=== PATIENT | male | born 1965 | race American Indian/Alaskan Native ===

== ENCOUNTER 2020-02-02 10:32 | Inpatient (IN) | payer BC, OTHER ==
--- NOTE | 2020-02-02 10:32 | EDM.PDOC ---
"ED HPI GENERAL MEDICAL PROBLEM - General Chief Complaint: Respiratory Problem Stated Complaint: AMBULANCE Time Seen by Provider: 02/02/20 10:32 Source of Information: Reports: Patient, EMS, Old Records, RN, RN Notes Reviewed History Limitations: Reports: No Limitations - History of Present Illness INITIAL COMMENTS - FREE TEXT/NARRATIVE: Pt arrives from [facility] by ambulance with report of shortness of breath, cough, and fever. Pt reports generalized body aches. Pt has been exposed to COVID positive family members living in his home over the past 1 to 2 weeks. EMS reports pt was initially hypoxic with O2 sats. of 85%. Clinic reports chest x-ray from today reported as B/L pneumonia, WBC 10.2. Onset: Gradual Duration: Day(s): (1-2), Constant, Getting Worse Location: Reports: Chest, Generalized - Related Data Allergies Allergy/AdvReac Type Severity Reaction Status Date / Time No Known Allergies Allergy Verified 02/02/20 10:40 Home Meds: Home Meds . [No Known Home Meds] 02/02/20 [History] Past Medical History Endocrine/Metabolic History: Reports: Diabetes, Type II Social & Family History - Family History Other Psychiatric Family History: 02/02/20 Multiple family members in the home confirmed COVID positive. Endocrine/Metabolic: Reports: Diabetes, type II - Living Situation & Occupation Living situation: Reports: with Family ED ROS GENERAL - Review of Systems Review Of Systems: Comprehensive ROS is negative, except as noted in HPI. ED EXAM, GENERAL - Physical Exam Exam: See Below Exam Limited By: No Limitations General Appearance: Alert, WD/WN, No Apparent Distress, Obese Eye Exam: Bilateral Eye: Normal Inspection Nose: Normal Inspection, Normal Mucosa, No Blood Throat/Mouth: Normal Inspection, Normal Lips, Normal Oropharynx, Normal Voice, No Airway Compromise Head: Atraumatic, Normocephalic Neck: Normal Inspection, Supple, Non-Tender, Full Range of Motion Respiratory/Chest: No Respiratory Distress, No Accessory Muscle Use, Crackles (Bibasilar). No: Rales, Rhonchi, Wheezing, Stridor Cardiovascular: Normal Peripheral Pulses, Regular Rate, Rhythm, No Edema GI/Abdominal: Normal Bowel Sounds, Soft, Non-Tender, No Organomegaly, No Distention, No Abnormal Bruit, No Mass Back Exam: Normal Inspection, Full Range of Motion Extremities: Normal Inspection, Normal Range of Motion, Non-Tender, Normal Capillary Refill, No Pedal Edema Neurological: Alert, Oriented, CN II-XII Intact, Normal Cognition, No Motor/Sensory Deficits Psychiatric: Normal Affect, Normal Mood Skin Exam: Warm, Dry, Intact, Normal Color, No Rash Course - Vital Signs Last Recorded V/S: Last Vital Signs Temp 99.9 F 02/02/20 10:41 Pulse 97 02/02/20 10:41 Resp 24 H 02/02/20 10:41 BP 126/70 02/02/20 10:41 Pulse Ox 96 02/02/20 10:41 - Orders/Labs/Meds Orders: Active Orders 24 hr Category Date Time Status Peripheral IV Care [RC] . DIRECTED Care 02/02/20 10:34 Active CULTURE BLOOD [BC] Stat Lab 02/02/20 10:56 Received CULTURE BLOOD [BC] Stat Lab 02/02/20 11:01 Received DRUG SCREEN URINE BIORAD [URCHEM] Stat Lab 02/02/20 10:33 Ordered UA RFX FRANK AND CULT IF INDIC [URIN] Stat Lab 02/02/20 10:33 Ordered Sodium Chloride 0.9% [Saline Flush] Med 02/02/20 10:33 Active 10 ml FLUSH ASDIRECTED PRN Sodium Chloride 0.9% with KCl [Normal Saline with 40 Med 02/02/20 12:00 Active mEq KCl] 1,000 ml IV ASDIRECTED Blood Culture x2 Reflex Set [OM.PC] Stat Oth 02/02/20 10:33 Ordered Peripheral IV Insertion Adult [OM.PC] Stat Oth 02/02/20 10:33 Ordered Medication Orders Potassium Chloride/Sodium Chloride (Normal Saline With 40 Meq Kcl) 1,000 mls @ 250 mls/hr IV ASDIRECTED MEL Last Admin: 02/02/20 12:11 Dose: 250 mls/hr Documented by: KATIE Sodium Chloride (Saline Flush) 10 ml FLUSH ASDIRECTED PRN PRN Reason: Keep Vein Open Last Admin: 02/02/20 10:38 Dose: 10 ml Documented by: VI Labs: Laboratory Tests 02/02/20 02/02/20 02/02/20 Range/Units 10:10 10:56 10:56 WBC 10.9 H (5.0-10.0) 10^3/uL RBC 4.83 (4.6-6.2) 10^6/uL Hgb 14.2 (14.0-18.0) g/dL Hct 39.3 L (40.0-54.0) % MCV 81.4 (80-100) fL MCH 29.4 (27.0-34.0) pg MCHC 36.1 H (33.0-35.0) g/dL Plt Count 240 (150-450) 10^3/uL Neut % (Auto) 90.1 H (42.2-75.2) % Lymph % (Auto) 4.6 L (20.5-50.1) % Coleman % (Auto) 5.2 (2-8) % Eos % (Auto) 0.0 L (1.0-3.0) % Baso % (Auto) 0.1 (0.0-1.0) % PT (9.0-12.0) SEC INR (0.9-1.2) APTT (22.0-34.0) SEC D-Dimer, Quantitative (0-400) ng/mL Sodium 133 L (136-145) mmol/L Potassium 2.9 L (3.5-5.1) mmol/L Chloride 96 L (98-107) mmol/L Carbon Dioxide 27 (21-32) mmol/L Anion Gap 12.9 (7-13) mEq/L BUN 10 (7-18) mg/dL Creatinine 1.22 (0.70-1.30) mg/dL Est Cr Clr Drug Dosing 69.22 mL/min Estimated GFR (MDRD) > 60 BUN/Creatinine Ratio 8.2 (No establ ref range) Glucose 304 H (74-99) mg/dL Lactic Acid (0.4-2.0) mmol/L Calcium 7.7 L (8.5-10.1) mg/dL Total Bilirubin 1.0 (0.2-1.0) mg/dL AST 43 H (15-37) U/L ALT 46 (16-63) U/L Alkaline Phosphatase 116 (46-116) U/L Troponin I < 0.017 (0.000-0.056) ng/mL C-Reactive Protein 19.2 H (0.0-0.9) mg/dL Total Protein 7.6 (6.4-8.2) g/dL Albumin 2.7 L (3.4-5.0) g/dL Globulin 4.9 Albumin/Globulin Ratio 0.55 COVID-19 (HEMALATHA) Negative (NEGATIVE) 02/02/20 02/02/20 02/02/20 Range/Units 10:56 10:56 10:56 WBC (5.0-10.0) 10^3/uL RBC (4.6-6.2) 10^6/uL Hgb (14.0-18.0) g/dL Hct (40.0-54.0) % MCV (80-100) fL MCH (27.0-34.0) pg MCHC (33.0-35.0) g/dL Plt Count (150-450) 10^3/uL Neut % (Auto) (42.2-75.2) % Lymph % (Auto) (20.5-50.1) % Coleman % (Auto) (2-8) % Eos % (Auto) (1.0-3.0) % Baso % (Auto) (0.0-1.0) % PT 9.8 (9.0-12.0) SEC INR 1.0 (0.9-1.2) APTT 27.5 (22.0-34.0) SEC D-Dimer, Quantitative 735 H (0-400) ng/mL Sodium (136-145) mmol/L Potassium (3.5-5.1) mmol/L Chloride (98-107) mmol/L Carbon Dioxide (21-32) mmol/L Anion Gap (7-13) mEq/L BUN (7-18) mg/dL Creatinine (0.70-1.30) mg/dL Est Cr Clr Drug Dosing mL/min Estimated GFR (MDRD) BUN/Creatinine Ratio (No establ ref range) Glucose (74-99) mg/dL Lactic Acid 2.4 H* (0.4-2.0) mmol/L Calcium (8.5-10.1) mg/dL Total Bilirubin (0.2-1.0) mg/dL AST (15-37) U/L ALT (16-63) U/L Alkaline Phosphatase (46-116) U/L Troponin I (0.000-0.056) ng/mL C-Reactive Protein (0.0-0.9) mg/dL Total Protein (6.4-8.2) g/dL Albumin (3.4-5.0) g/dL Globulin Albumin/Globulin Ratio COVID-19 (HEMALATHA) (NEGATIVE) Meds: Medications Generic Name Dose Route Start Last Admin Trade Name Freq PRN Reason Stop Dose Admin Potassium Chloride/Sodium Chloride 1,000 mls @ 250 mls/hr 02/02/20 12:00 02/02/20 12:11 Normal Saline With 40 Meq Kcl IV 250 mls/hr ASDIRECTED MEL Administration Sodium Chloride 10 ml 02/02/20 10:33 02/02/20 10:38 Saline Flush FLUSH 10 ml ASDIRECTED PRN Administration Keep Vein Open Discontinued Medications Generic Name Dose Route Start Last Admin Trade Name Freq PRN Reason Stop Dose Admin Azithromycin 500 mg 02/02/20 11:39 02/02/20 11:54 Zithromax PO 02/02/20 11:40 500 mg ONETIME ONE Administration Dexamethasone 8 mg 02/02/20 11:39 02/02/20 11:55 Dexamethasone IVPUSH 02/02/20 11:40 8 mg ONETIME ONE Administration Ceftriaxone Sodium 2 gm/ 100 mls @ 200 mls/hr 02/02/20 11:38 02/02/20 11:54 Sodium Chloride IV 02/02/20 12:07 200 mls/hr ONETIME ONE Administration Iopamidol 100 ml 02/02/20 12:19 02/02/20 12:51 Isovue-370 (76%) IVPUSH 02/02/20 12:20 79 ml ONETIME ONE Administration Ondansetron HCl 4 mg 02/02/20 11:52 02/02/20 11:58 Zofran IV 02/02/20 11:53 4 mg ONETIME ONE Administration Potassium Chloride 40 meq 02/02/20 11:52 02/02/20 12:11 Klor-Con 10 PO 02/02/20 11:53 40 meq ONETIME ONE Administration - Radiology Interpretation Free Text/Narrative:: [facility] [place] [facility] Final Radiology Report Call: [phone] assistance Online chat: [email or web address] Name: KEYLA SMITH SR Age: 55Years M Date: 02/02/2020 SSN: -- : [id number] Study: CT CHEST W CONT Requesting Physician: YASMANY AQUINO Images: [id number] Addl Studies: Provided Clinical History: Hypoxia, elev. D-dimer Contrast: With Contrast Medium: Isovue 370 Contrast Amount: 79 mL Contrast Method: Intravenous (IV) Page 1 of 2 PROCEDURE INFORMATION: Exam: CT Chest With Contrast Exam date and time: 02/02/2020 12:34 PM Age: 55 years old Clinical indication: Other: Hypoxia, elev. D-dimer TECHNIQUE: Imaging protocol: Computed tomography of the chest with intravenous contrast. Radiation optimization: All CT scans at this facility use at least one of these dose optimization techniques: automated exposure control; mA and/or kV adjustment per patient size (includes targeted exams where dose is matched to clinical indication); or iterative reconstruction. Contrast material: ISOVUE 370; Contrast volume: 79 ml; Contrast route: INTRAVE NOUS (IV); COMPARISON: No relevant prior studies available. FINDINGS: Thyroid: The bilateral thyroid lobes are unremarkable. Lungs: Mosaic lung attenuation is present consistent with small airways or small vessels disease, with ground-glass opacities which are non rounded and do not demonstrate a specific central versus peripheral distribution (apical sparing is present). Right bilateral lower lobe pulmonary partial atelectasis. Pleural space: No pneumothorax. No pleural effusion. Heart: Small pericardial effusion. Mediastinal space: Hyperattenuating material within the distal thoracic esophagus consistent with ingested medication. Aorta: Mild aortic arch atherosclerotic calcification without ectasia. Lymph nodes: Right upper paratracheal lymph node measuring 7.6 mm short axis. Right hilar lymph node measuring 10.5 mm short axis. Left hilar lymph node measuring 7.1 mm short axis. KEYLA SMITH SR | Final Radiology Report CONFIDENTIALITY STATEMENT This report is intended only for use by the referring physician, and only in accordance with law. If you received this in error, call [phone]. Page 2 of 2 Bones/joints: No acute abnormality. No acute fracture. Soft tissues: Unremarkable. IMPRESSION: 1. No pulmonary embolism identified. 2. Possible small airways/small vessels disease. 3. Nonspecific bilateral pulmonary ground-glass opacities. Differential diagno sis could include pneumonitis/viral pneumonitis/atypical pulmonary edema and other etiologies. Clinical correlation is recommended. 4. Right bilateral lower lobe pulmonary partial atelectasis. Superimposed pneumonitis is difficult to exclude. Clinical correlation is recommended. 5. Small pericardial effusion. Thank you for allowing us to participate in the care of your patient. Dictated and Authenticated by: New Posey MD 02/02/2020 1:15 PM Central Time ([place] & [place]) - Re-Assessments/Exams Free Text/Narrative Re-Assessment/Exam: 02/02/20 13:22 I suspect the pt likely had COVID at the onset of his resp. illness 2+ weeks ago given the CT Chest findings, lab results, exam, and considering his son were both confirmed COVID positive. The sons completed their 14 day quarantine today. Plan to admit the pt to Dr. Maria at this time. Departure - Departure Time of Disposition: 13:24 (admitted to Dr. Maria) Disposition: Admitted As Inpatient 67 Condition: Fair Clinical Impression: Viral pneumonitis Pneumonia Qualifiers: Pneumonia type: due to unspecified organism Laterality: bilateral Lung locati on: unspecified part of lung Qualified Code(s): J18.9 - Pneumonia, unspecified organism - Discharge Information *PRESCRIPTION DRUG MONITORING PROGRAM REVIEWED*: No *COPY OF PRESCRIPTION DRUG MONITORING REPORT IN PATIENT CHUY: No Referrals: PCP,None [Primary Care Provider] - Forms: ED Department Discharge Sepsis Event Note (ED) - Focused Exam Vital Signs: Vital Signs Temp Pulse Resp BP Pulse Ox 02/02/20 10:41 99.9 F 97 24 H 126/70 96 - My Orders Last 24 Hours: My Active Orders 02/02/20 10:33 DRUG SCREEN URINE BIORAD [URCHEM] Stat UA RFX FRANK AND CULT IF INDIC [URIN] Stat Sodium Chloride 0.9% [Saline Flush] 10 ml FLUSH ASDIRECTED PRN Blood Culture x2 Reflex Set [OM.PC] Stat Peripheral IV Insertion Adult [OM.PC] Stat 02/02/20 10:34 Peripheral IV Care [RC] . DIRECTED 02/02/20 10:56 CULTURE BLOOD [BC] Stat 02/02/20 11:01 CULTURE BLOOD [BC] Stat 02/02/20 12:00 Sodium Chloride 0.9% with KCl [Normal Saline with 40 mEq KCl] 1,000 ml IV ASDIRECTED - Assessment/Plan Last 24 Hours: My Active Orders 02/02/20 10:33 DRUG SCREEN URINE BIORAD [URCHEM] Stat UA RFX FRANK AND CULT IF INDIC [URIN] Stat Sodium Chloride 0.9% [Saline Flush] 10 ml FLUSH ASDIRECTED PRN Blood Culture x2 Reflex Set [OM.PC] Stat Peripheral IV Insertion Adult [OM.PC] Stat 02/02/20 10:34 Peripheral IV Care [RC] . DIRECTED 02/02/20 10:56 CULTURE BLOOD [BC] Stat 02/02/20 11:01 CULTURE BLOOD [BC] Stat 02/02/20 12:00 Sodium Chloride 0.9% with KCl [Normal Saline with 40 mEq KCl] 1,000 ml IV ASDIRECTED"
[2020-02-02] MEDS ORDERED: Sodium Chloride 0.9% 10 ML Syringe FLUSH PRN (10:33)
[2020-02-02 11:37] LABS: ANION GAP 12.9 mEq/L (7-13); CHLORIDE,CL 96 mmol/L (98-107); SODIUM,NA 133 mmol/L (136-145)
[2020-02-02] MEDS ORDERED: cefTRIAXone 2 GM in Sodium Chloride 0.9% 100 ML IV ONE (11:38)
[2020-02-02] MEDS ORDERED: Azithromycin 250 MG Tab PO ONE (11:39)
[2020-02-02] MEDS ORDERED: Dexamethasone 4 MG/ML SDV IVPUSH ONE (11:39)
[2020-02-02] MEDS ORDERED: Ondansetron 4 MG/2 ML SDV IV ONE (11:52)
[2020-02-02] MEDS ORDERED: Potassium Chloride 10 MEQ Tab.ER PO ONE (11:52)
[2020-02-02] MEDS ORDERED: Sodium Chloride 0.9% with KCl 1,000 ML IV SCH (12:00)
[2020-02-02 12:04] LABS: PTT,PARTIAL THROMBOPLSTIN TIME 27.5 SEC (22.0-34.0)
[2020-02-02] MEDS ORDERED: Iopamidol 755 Mg/ML 100 ML Bottle IVPUSH ONE (12:19)
--- NOTE | 2020-02-02 13:15 | CT ---
PROCEDURE INFORMATION: Exam: CT Chest With Contrast Exam date and time: 02/02/2020 12:34 PM Age: 55 years old Clinical indication: Other: Hypoxia, elev. D-dimer TECHNIQUE: Imaging protocol: Computed tomography of the chest with intravenous contrast. Radiation optimization: All CT scans at this facility use at least one of these dose optimization techniques: automated exposure control; mA and/or kV adjustment per patient size (includes targeted exams where dose is matched to clinical indication); or iterative reconstruction. Contrast material: ISOVUE 370; Contrast volume: 79 ml; Contrast route: INTRAVENOUS (IV); COMPARISON: No relevant prior studies available. FINDINGS: Thyroid: The bilateral thyroid lobes are unremarkable. Lungs: Mosaic lung attenuation is present consistent with small airways or small vessels disease, with ground-glass opacities which are non rounded and do not demonstrate a specific central versus peripheral distribution (apical sparing is present). Right bilateral lower lobe pulmonary partial atelectasis. Pleural space: No pneumothorax. No pleural effusion. Heart: Small pericardial effusion. Mediastinal space: Hyperattenuating material within the distal thoracic esophagus consistent with ingested medication. Aorta: Mild aortic arch atherosclerotic calcification without ectasia. Lymph nodes: Right upper paratracheal lymph node measuring 7.6 mm short axis. Right hilar lymph node measuring 10.5 mm short axis. Left hilar lymph node measuring 7.1 mm short axis. Bones/joints: No acute abnormality. No acute fracture. Soft tissues: Unremarkable. IMPRESSION: 1. No pulmonary embolism identified. 2. Possible small airways/small vessels disease. 3. Nonspecific bilateral pulmonary ground-glass opacities. Differential diagnosis could include pneumonitis/viral pneumonitis/atypical pulmonary edema and other etiologies. Clinical correlation is recommended. 4. Right bilateral lower lobe pulmonary partial atelectasis. Superimposed pneumonitis is difficult to exclude. Clinical correlation is recommended. 5. Small pericardial effusion.
[2020-02-02] MEDS ORDERED: Docusate Sodium 100 MG Cap PO PRN (13:52)
[2020-02-02] MEDS ORDERED: Ondansetron 4 MG Tab.DIS PO PRN (13:52)
[2020-02-02] MEDS ORDERED: Acetaminophen 325 MG Tab PO PRN (13:52)
[2020-02-02] MEDS ORDERED: Azithromycin 500 MG in Sodium Chloride 0.9% 250 ML IV SCH (14:00)
[2020-02-02] MEDS ORDERED: Heparin Sodium 5,000 Units/ML Vial SUBCUT SCH (14:00)
[2020-02-02] MEDS ORDERED: NS + KCl 20mEq/L 1,000 ML IV SCH (14:00)
[2020-02-02] MEDS ORDERED: Dexamethasone 4 MG Tab PO SCH (15:00)
[2020-02-02] MEDS ORDERED: cefTRIAXone 1 GM in Sodium Chloride 0.9% 100 ML IV SCH (15:00)
--- NOTE | 2020-02-02 15:40 | PCM.HP ---
H&P History of Present Illness - General Date of Service: 02/02/20 Admit Problem/Dx: Admission Diagnosis/Problem Admission Diagnosis/Problem Pneumonia Source of Information: Patient - History of Present Illness Initial Comments - Free Text/Narative: 55-year-old gentleman with a history of no chronic medical disease. He rarely sees doctors. On one of the prior notes he was noted to have hypertension but not on any medication. He developed chest congestion, stuffy nose, shortness of breath, subjective fever about 14-16 days to this presentation. He was taking NyQuil. He was having diarrhea. No associated nausea, vomiting or abdominal pain. He was staying at home in isolation. But was living in the same house as 2 of his sons. Both sons were diagnosed with covid 19 infection. He presented to the local clinic on the day of admission with continued complaints of shortness of breath. He was noted to have 85% room air oxygen saturation, was given oxygen supplement and transfer to the emergency room. - Related Data Allergies/Adverse Reactions: Allergies Allergy/AdvReac Type Severity Reaction Status Date / Time No Known Allergies Allergy Verified 02/02/20 14:42 Home Medications: Home Meds . [No Known Home Meds] 02/02/20 [History] Past Medical History HEENT History: Reports: None Cardiovascular History: Reports: None Respiratory History: Reports: None Gastrointestinal History: Reports: None Genitourinary History: Reports: None Musculoskeletal History: Reports: None Neurological History: Reports: None Psychiatric History: Reports: None Endocrine/Metabolic History: Reports: Diabetes, Type II Hematologic History: Reports: None Immunologic History: Reports: None Oncologic (Cancer) History: Reports: None Dermatologic History: Reports: None - Infectious Disease History Infectious Disease History: Reports: Helicobacter Pylori - Past Surgical History Head Surgeries/Procedures: Reports: None Social & Family History - Family History Family Medical History: Noncontributory Other Psychiatric Family History: 02/02/20 Multiple family members in the home confirmed COVID positive. Endocrine/Metabolic: Reports: Diabetes, type II - Tobacco Use Smoking Status *Q: Former Smoker Used Tobacco, but Quit: Yes Month/Year Tobacco Last Used: 1994 Second Hand Smoke Exposure: No - Caffeine Use Caffeine Use: Reports: Coffee, Soda - Alcohol Use Days Per Week of Alcohol Use: 1 Number of Drinks Per Day: 12 Total Drinks Per Week: 12 - Recreational Drug Use Recreational Drug Use: No Drug Use in Last 12 Months: Yes Recreational Drug Type: Reports: Marijuana/Hashish Recreational Drug Use Frequency: Socially - Living Situation & Occupation Living situation: Reports: with Family H&P Review of Systems - Review of Systems: Review Of Systems: See Below General: Reports: Fever, Chills Pulmonary: Reports: Shortness of Breath Cardiovascular: Denies: Chest Pain, Edema Gastrointestinal: Denies: Abdominal Pain Genitourinary: Denies: Dysuria Psychiatric: Denies: Confusion Neurological: Denies: Dizziness Exam - Exam Exam: See Below - Vital Signs Vital Signs: Last Vital Signs Temp 99.9 F 02/02/20 10:41 Pulse 85 02/02/20 14:39 Resp 22 H 02/02/20 14:39 BP 127/71 02/02/20 14:39 Pulse Ox 90 L 02/02/20 14:39 Weight: 239 lb 3.2 oz - Exam Quality Assessment: Supplemental Oxygen General: Alert, Oriented Neck: Supple Lungs: Decreased Breath Sounds, Rhonchi Cardiovascular: Regular Rate, Regular Rhythm GI/Abdominal Exam: Normal Bowel Sounds, Soft, Non-Tender Extremities: No Pedal Edema Neuro Extensive - Mental Status: Alert, Oriented x3, Normal Mood/Affect Psychiatric: Alert, Normal Affect, Normal Mood - Patient Data Lab Results Last 24 hrs: Laboratory Results - last 24 hr 02/02/20 02/02/20 02/02/20 Range/Units 10:10 10:56 10:56 WBC 10.9 H (5.0-10.0) 10^3/uL RBC 4.83 (4.6-6.2) 10^6/uL Hgb 14.2 (14.0-18.0) g/dL Hct 39.3 L (40.0-54.0) % MCV 81.4 (80-100) fL MCH 29.4 (27.0-34.0) pg MCHC 36.1 H (33.0-35.0) g/dL Plt Count 240 (150-450) 10^3/uL Neut % (Auto) 90.1 H (42.2-75.2) % Lymph % (Auto) 4.6 L (20.5-50.1) % [place] % (Auto) 5.2 (2-8) % Eos % (Auto) 0.0 L (1.0-3.0) % Baso % (Auto) 0.1 (0.0-1.0) % PT (9.0-12.0) SEC INR (0.9-1.2) APTT (22.0-34.0) SEC D-Dimer, Quantitative (0-400) ng/mL Sodium 133 L (136-145) mmol/L Potassium 2.9 L (3.5-5.1) mmol/L Chloride 96 L (98-107) mmol/L Carbon Dioxide 27 (21-32) mmol/L Anion Gap 12.9 (7-13) mEq/L BUN 10 (7-18) mg/dL Creatinine 1.22 (0.70-1.30) mg/dL Est Cr Clr Drug Dosing 69.22 mL/min Estimated GFR (MDRD) > 60 BUN/Creatinine Ratio 8.2 (No establ ref range) Glucose 304 H (74-99) mg/dL Lactic Acid (0.4-2.0) mmol/L Calcium 7.7 L (8.5-10.1) mg/dL Total Bilirubin 1.0 (0.2-1.0) mg/dL AST 43 H (15-37) U/L ALT 46 (16-63) U/L Alkaline Phosphatase 116 (46-116) U/L Troponin I < 0.017 (0.000-0.056) ng/mL C-Reactive Protein 19.2 H (0.0-0.9) mg/dL Total Protein 7.6 (6.4-8.2) g/dL Albumin 2.7 L (3.4-5.0) g/dL Globulin 4.9 Albumin/Globulin Ratio 0.55 COVID-19 (HEMALATHA) Negative (NEGATIVE) 02/02/20 02/02/20 02/02/20 Range/Units 10:56 10:56 10:56 WBC (5.0-10.0) 10^3/uL RBC (4.6-6.2) 10^6/uL Hgb (14.0-18.0) g/dL Hct (40.0-54.0) % MCV (80-100) fL MCH (27.0-34.0) pg MCHC (33.0-35.0) g/dL Plt Count (150-450) 10^3/uL Neut % (Auto) (42.2-75.2) % Lymph % (Auto) (20.5-50.1) % [place] % (Auto) (2-8) % Eos % (Auto) (1.0-3.0) % Baso % (Auto) (0.0-1.0) % PT 9.8 (9.0-12.0) SEC INR 1.0 (0.9-1.2) APTT 27.5 (22.0-34.0) SEC D-Dimer, Quantitative 735 H (0-400) ng/mL Sodium (136-145) mmol/L Potassium (3.5-5.1) mmol/L Chloride (98-107) mmol/L Carbon Dioxide (21-32) mmol/L Anion Gap (7-13) mEq/L BUN (7-18) mg/dL Creatinine (0.70-1.30) mg/dL Est Cr Clr Drug Dosing mL/min Estimated GFR (MDRD) BUN/Creatinine Ratio (No establ ref range) Glucose (74-99) mg/dL Lactic Acid 2.4 H* (0.4-2.0) mmol/L Calcium (8.5-10.1) mg/dL Total Bilirubin (0.2-1.0) mg/dL AST (15-37) U/L ALT (16-63) U/L Alkaline Phosphatase (46-116) U/L Troponin I (0.000-0.056) ng/mL C-Reactive Protein (0.0-0.9) mg/dL Total Protein (6.4-8.2) g/dL Albumin (3.4-5.0) g/dL Globulin Albumin/Globulin Ratio COVID-19 (HEMALATHA) (NEGATIVE) Result Diagrams: 02/02/20 10:56 02/02/20 10:56 - Problem List (1) COVID-19 determined by clinical diagnostic criteria SNOMED Code(s): 561222149, 776102841 ICD Code: U07.1 - COVID-19 Status: Acute Current Visit: Yes (2) Pneumonia SNOMED Code(s): 406648223 ICD Code: J18.9 - PNEUMONIA, UNSPECIFIED ORGANISM Status: Acute Current Visit: Yes Qualifiers: Pneumonia type: due to unspecified organism Laterality: bilateral Lung location: unspecified part of lung Qualified Code(s): J18.9 - Pneumonia, unspecified organism Problem List Initiated/Reviewed/Updated: Yes Orders Last 24hrs: Active Orders 24 hr Category Date Time Status Admission Diagnosis [ADT] Stat ADT 02/02/20 13:26 Ordered Admission Status [Patient Status] [ADT] Routine ADT 02/02/20 13:26 Active Antiembolic Devices [RC] 10, Care 02/02/20 13:54 Active Notify Provider Consults [RC] ASDIRECTED Care 02/02/20 14:51 Active Oxygen Therapy [RC] PRN Care 02/02/20 13:52 Active Up With Assistance [RC] ASDIRECTED Care 02/02/20 13:52 Active VTE/DVT Education [RC] PER UNIT ROUTINE Care 02/02/20 13:52 Active Vital Signs [RC] Q4H Care 02/02/20 13:52 Active Consult to Physician [CONS] Routine Cons 02/02/20 14:51 Ordered General [Regular Diet] [DIET] Diet 02/02/20 Dinner Active BASIC METABOLIC PANEL,BMP [CHEM] AM Lab 02/03/20 05:11 Ordered CBC WITH AUTO DIFF [HEME] AM Lab 02/03/20 05:11 Ordered CULTURE BLOOD [BC] Stat Lab 02/02/20 10:56 Received CULTURE BLOOD [BC] Stat Lab 02/02/20 11:01 Received CULTURE SPUTUM + SMEAR [RM] Routine Lab 02/02/20 13:50 Ordered DD [D-DIMER QUANTITATIVE] [COAG] AM Lab 02/03/20 05:11 Ordered DRUG SCREEN URINE BIORAD [URCHEM] Stat Lab 02/02/20 10:33 Ordered FERRITIN [CHEM] Routine Lab 02/02/20 15:05 Received LACTATE DEHYDROGENASE,LDH [CHEM] Routine Lab 02/02/20 15:05 Received LACTIC ACID [CHEM] Routine Lab 02/02/20 15:05 Received PROCALCITONIN [REF] Routine Lab 02/02/20 10:56 Received SEDIMENTATION RATE MANUAL [HEME] Routine Lab 02/02/20 15:05 Received UA RFX FRANK AND CULT IF INDIC [URIN] Stat Lab 02/02/20 10:33 Ordered Acetaminophen [Tylenol] Med 02/02/20 13:52 Active 650 mg PO Q4H PRN Azithromycin [Zithromax] 500 mg Med 02/02/20 14:00 Active Sodium Chloride 0.9% [Normal Saline (AdvBag)] 250 ml IV Q24H Docusate Sodium [Colace] Med 02/02/20 13:52 Active 100 mg PO BID PRN Enoxaparin [Lovenox] Med 02/02/20 21:00 Active 40 mg SUBCUT Q12HR NS + KCl 20mEq/L [Normal Saline with 20 mEq KCl] 1,000 Med 02/02/20 14:00 Active ml IV ASDIRECTED Ondansetron [Zofran ODT] Med 02/02/20 13:52 Active 4 mg PO Q4H PRN Potassium Chloride [Klor-Con 10] Med 02/02/20 19:00 Once 40 meq PO ONETIME ONE Sodium Chloride 0.9% [Saline Flush] Med 02/02/20 10:33 Active 10 ml FLUSH ASDIRECTED PRN Sodium Chloride 0.9% with KCl [Normal Saline with 40 Med 02/02/20 12:00 Active mEq KCl] 1,000 ml IV ASDIRECTED cefTRIAXone [Rocephin] 1 gm Med 02/02/20 15:00 Active Sodium Chloride 0.9% [Normal Saline] 100 ml IV Q24H dexAMETHasone Med 02/03/20 08:00 Active 6 mg PO DAILY Antiembolic Hose [OM.PC] Per Unit Routine Oth 02/02/20 13:53 Ordered Blood Culture x2 Reflex Set [OM.PC] Stat Oth 02/02/20 10:33 Ordered Peripheral IV Insertion Adult [OM.PC] Stat Oth 02/02/20 10:33 Ordered Resuscitation Status Routine Resus Stat 02/02/20 13:52 Ordered Medication Orders Acetaminophen (Tylenol) 650 mg PO Q4H PRN PRN Reason: Pain (Mild 1-3)/fever Dexamethasone (Dexamethasone) 6 mg PO DAILY MEL Docusate Sodium (Colace) 100 mg PO BID PRN PRN Reason: Constipation Enoxaparin Sodium (Lovenox) 40 mg SUBCUT Q12HR MEL Potassium Chloride/Sodium Chloride (Normal Saline With 40 Meq Kcl) 1,000 mls @ 250 mls/hr IV ASDIRECTED MEL Last Admin: 02/02/20 12:11 Dose: 250 mls/hr Documented by: KATIE Potassium Chloride/Sodium Chloride (Normal Saline With 20 Meq Kcl) 1,000 mls @ 100 mls/hr IV ASDIRECTED [facility] Ceftriaxone Sodium 1 gm/ (Sodium Chloride) 100 mls @ 200 mls/hr IV Q24H MEL Azithromycin 500 mg/ Sodium (Chloride) 250 mls @ 250 mls/hr IV Q24H MEL Ondansetron HCl (Zofran Odt) 4 mg PO Q4H PRN PRN Reason: nausea, able to take PO Potassium Chloride (Klor-Con 10) 40 meq PO ONETIME ONE Stop: 02/02/20 19:01 Sodium Chloride (Saline Flush) 10 ml FLUSH ASDIRECTED PRN PRN Reason: Keep Vein Open Last Admin: 02/02/20 10:38 Dose: 10 ml Documented by: VI Assessment/Plan Comment:: 56-year-old on no medications, no allergy. No diagnosed chronic medical disease. He presented with shortness of breath. Clinical history, exposure history and CT of the chest compatible with COVID 19 related viral pneumonia Rapid Covid test nevertheless was negative. There is possible bacterial pneumonia causing similar symptoms. will obtain procalcitonin test Likely diagnosis so is Covid 19 pneumonia We will consult ID Treat with dexamethasone, remdesivir. For potential bacterial pneumonia. Continue azithromycin, ceftriaxone until pro- calcitonin level resulted. Acute hypoxemic respiratory failure Supplemental oxygen as needed Follow closely for deterioration Hypokalemia We'll replace and recheck DVT prophylaxis We'll provide aggressive DVT prophylaxis in view of probable Covid 19 infection Use Lovenox
[2020-02-02] MEDS: Potassium Chloride 10 MEQ Tab.ER PO ONE ×2 (17:47→18:35)
[2020-02-02] MEDS ORDERED: Sodium Chloride 0.9% 10 ML Syringe IV SCH (18:30)
[2020-02-02] MEDS ORDERED: Water For Injection, Sterile 40 ML ONE (19:23)
[2020-02-02] MEDS: Enoxaparin 40 MG/0.4 ML Syringe SUBCUT SCH (20:07)
[2020-02-02] MEDS ORDERED: Enoxaparin 40 MG/0.4 ML Syringe SUBCUT SCH (21:00)
[2020-02-03 06:28] LABS: ANION GAP 13.4 mEq/L (7-13); CHLORIDE,CL 102 mmol/L (98-107); SODIUM,NA 137 mmol/L (136-145)
[2020-02-03] MEDS: Dexamethasone 4 MG Tab PO SCH ×2 (08:19→08:44)
[2020-02-03] MEDS: Enoxaparin 40 MG/0.4 ML Syringe SUBCUT SCH ×2 (08:20→20:36)
--- NOTE | 2020-02-03 10:51 | PCM.PN ---
- General Info Date of Service: 02/03/20 Admission Dx/Problem (Free Text): Admission Diagnosis/Problem Admission Diagnosis/Problem Pneumonia Subjective Update: Remained stable, oxygen requirement is stable around 3 L nasal cannula oxygen Has cough, nonproductive. Has subjective fever. Feels his breathing has improved. Did not get out of bed much, confined to his room. No associated chest pain, no diarrhea, no abdominal pain. Functional Status: Reports: Pain Controlled - Review of Systems General: Reports: Weakness. Denies: Fever Pulmonary: Reports: Shortness of Breath, Cough. Denies: Pleuritic Chest Pain (Improved), Sputum, Hemoptysis, Wheezing Cardiovascular: Denies: Chest Pain Gastrointestinal: Denies: Abdominal Pain, Diarrhea, Vomiting Neurological: Denies: Confusion - Patient Data Vitals - Most Recent: Last Vital Signs Temp 99.6 F 02/03/20 08:20 Pulse 91 02/03/20 08:20 Resp 16 02/03/20 08:20 BP 149/80 H 02/03/20 08:20 Pulse Ox 90 L 02/03/20 08:20 Weight - Most Recent: 239 lb 3.2 oz I&O - Last 24 Hours: Intake & Output 02/02/20 02/03/20 02/03/20 22:59 06:59 14:59 Intake Total 380 696 260 Output Total 600 Balance 380 96 260 Lab Results Last 24 Hours: Laboratory Results - last 24 hr 02/02/20 02/02/20 02/02/20 Range/Units 10:10 10:56 10:56 WBC 10.9 H (5.0-10.0) 10^3/uL RBC 4.83 (4.6-6.2) 10^6/uL Hgb 14.2 (14.0-18.0) g/dL Hct 39.3 L (40.0-54.0) % MCV 81.4 (80-100) fL MCH 29.4 (27.0-34.0) pg MCHC 36.1 H (33.0-35.0) g/dL Plt Count 240 (150-450) 10^3/uL Neut % (Auto) 90.1 H (42.2-75.2) % Lymph % (Auto) 4.6 L (20.5-50.1) % [place] % (Auto) 5.2 (2-8) % Eos % (Auto) 0.0 L (1.0-3.0) % Baso % (Auto) 0.1 (0.0-1.0) % Add Manual Diff Neutrophils % (Manual) (42-75) % Band Neutrophils % % Lymphocytes % (Manual) (20-50) % Monocytes % (Manual) (2-8) % ESR (0-15) mm/hr PT (9.0-12.0) SEC INR (0.9-1.2) APTT (22.0-34.0) SEC D-Dimer, Quantitative (0-400) ng/mL Sodium 133 L (136-145) mmol/L Potassium 2.9 L (3.5-5.1) mmol/L Chloride 96 L (98-107) mmol/L Carbon Dioxide 27 (21-32) mmol/L Anion Gap 12.9 (7-13) mEq/L BUN 10 (7-18) mg/dL Creatinine 1.22 (0.70-1.30) mg/dL Est Cr Clr Drug Dosing 69.22 mL/min Estimated GFR (MDRD) > 60 BUN/Creatinine Ratio 8.2 (No establ ref range) Glucose 304 H (74-99) mg/dL Lactic Acid (0.4-2.0) mmol/L Calcium 7.7 L (8.5-10.1) mg/dL Ferritin (26-388) mg/mL Total Bilirubin 1.0 (0.2-1.0) mg/dL AST 43 H (15-37) U/L ALT 46 (16-63) U/L Alkaline Phosphatase 116 (46-116) U/L Lactate Dehydrogenase (85-227) U/L Troponin I < 0.017 (0.000-0.056) ng/mL C-Reactive Protein 19.2 H (0.0-0.9) mg/dL Total Protein 7.6 (6.4-8.2) g/dL Albumin 2.7 L (3.4-5.0) g/dL Globulin 4.9 Albumin/Globulin Ratio 0.55 Procalcitonin (<0.10) ng/mL COVID-19 (HEMALATHA) Negative (NEGATIVE) 02/02/20 02/02/20 02/02/20 Range/Units 10:56 10:56 10:56 WBC (5.0-10.0) 10^3/uL RBC (4.6-6.2) 10^6/uL Hgb (14.0-18.0) g/dL Hct (40.0-54.0) % MCV (80-100) fL MCH (27.0-34.0) pg MCHC (33.0-35.0) g/dL Plt Count (150-450) 10^3/uL Neut % (Auto) (42.2-75.2) % Lymph % (Auto) (20.5-50.1) % [place] % (Auto) (2-8) % Eos % (Auto) (1.0-3.0) % Baso % (Auto) (0.0-1.0) % Add Manual Diff Neutrophils % (Manual) (42-75) % Band Neutrophils % % Lymphocytes % (Manual) (20-50) % Monocytes % (Manual) (2-8) % ESR (0-15) mm/hr PT 9.8 (9.0-12.0) SEC INR 1.0 (0.9-1.2) APTT 27.5 (22.0-34.0) SEC D-Dimer, Quantitative 735 H (0-400) ng/mL Sodium (136-145) mmol/L Potassium (3.5-5.1) mmol/L Chloride (98-107) mmol/L Carbon Dioxide (21-32) mmol/L Anion Gap (7-13) mEq/L BUN (7-18) mg/dL Creatinine (0.70-1.30) mg/dL Est Cr Clr Drug Dosing mL/min Estimated GFR (MDRD) BUN/Creatinine Ratio (No establ ref range) Glucose (74-99) mg/dL Lactic Acid 2.4 H* (0.4-2.0) mmol/L Calcium (8.5-10.1) mg/dL Ferritin (26-388) mg/mL Total Bilirubin (0.2-1.0) mg/dL AST (15-37) U/L ALT (16-63) U/L Alkaline Phosphatase (46-116) U/L Lactate Dehydrogenase (85-227) U/L Troponin I (0.000-0.056) ng/mL C-Reactive Protein (0.0-0.9) mg/dL Total Protein (6.4-8.2) g/dL Albumin (3.4-5.0) g/dL Globulin Albumin/Globulin Ratio Procalcitonin (<0.10) ng/mL COVID-19 (HEMALATHA) (NEGATIVE) 02/02/20 02/02/20 02/02/20 Range/Units 10:56 15:05 15:05 WBC (5.0-10.0) 10^3/uL RBC (4.6-6.2) 10^6/uL Hgb (14.0-18.0) g/dL Hct (40.0-54.0) % MCV (80-100) fL MCH (27.0-34.0) pg MCHC (33.0-35.0) g/dL Plt Count (150-450) 10^3/uL Neut % (Auto) (42.2-75.2) % Lymph % (Auto) (20.5-50.1) % [place] % (Auto) (2-8) % Eos % (Auto) (1.0-3.0) % Baso % (Auto) (0.0-1.0) % Add Manual Diff Neutrophils % (Manual) (42-75) % Band Neutrophils % % Lymphocytes % (Manual) (20-50) % Monocytes % (Manual) (2-8) % ESR (0-15) mm/hr PT (9.0-12.0) SEC INR (0.9-1.2) APTT (22.0-34.0) SEC D-Dimer, Quantitative (0-400) ng/mL Sodium (136-145) mmol/L Potassium (3.5-5.1) mmol/L Chloride (98-107) mmol/L Carbon Dioxide (21-32) mmol/L Anion Gap (7-13) mEq/L BUN (7-18) mg/dL Creatinine (0.70-1.30) mg/dL Est Cr Clr Drug Dosing mL/min Estimated GFR (MDRD) BUN/Creatinine Ratio (No establ ref range) Glucose (74-99) mg/dL Lactic Acid 1.8 (0.4-2.0) mmol/L Calcium (8.5-10.1) mg/dL Ferritin 1756 H (26-388) mg/mL Total Bilirubin (0.2-1.0) mg/dL AST (15-37) U/L ALT (16-63) U/L Alkaline Phosphatase (46-116) U/L Lactate Dehydrogenase (85-227) U/L Troponin I (0.000-0.056) ng/mL C-Reactive Protein (0.0-0.9) mg/dL Total Protein (6.4-8.2) g/dL Albumin (3.4-5.0) g/dL Globulin Albumin/Globulin Ratio Procalcitonin 0.22 H (<0.10) ng/mL COVID-19 (HEMALATHA) (NEGATIVE) 02/02/20 02/02/20 02/03/20 Range/Units 15:05 15:05 05:50 WBC 8.9 (5.0-10.0) 10^3/uL RBC 4.49 L (4.6-6.2) 10^6/uL Hgb 13.2 L (14.0-18.0) g/dL Hct 37.2 L (40.0-54.0) % MCV 82.9 (80-100) fL MCH 29.4 (27.0-34.0) pg MCHC 35.5 H (33.0-35.0) g/dL Plt Count 290 (150-450) 10^3/uL Neut % (Auto) 81.6 H (42.2-75.2) % Lymph % (Auto) 10.1 L (20.5-50.1) % [place] % (Auto) 8.3 H (2-8) % Eos % (Auto) 0.0 L (1.0-3.0) % Baso % (Auto) 0.0 (0.0-1.0) % Add Manual Diff Yes Neutrophils % (Manual) 76 H (42-75) % Band Neutrophils % 2 % Lymphocytes % (Manual) 18 L (20-50) % Monocytes % (Manual) 4 (2-8) % ESR 72 H (0-15) mm/hr PT (9.0-12.0) SEC INR (0.9-1.2) APTT (22.0-34.0) SEC D-Dimer, Quantitative (0-400) ng/mL Sodium (136-145) mmol/L Potassium (3.5-5.1) mmol/L Chloride (98-107) mmol/L Carbon Dioxide (21-32) mmol/L Anion Gap (7-13) mEq/L BUN (7-18) mg/dL Creatinine (0.70-1.30) mg/dL Est Cr Clr Drug Dosing mL/min Estimated GFR (MDRD) BUN/Creatinine Ratio (No establ ref range) Glucose (74-99) mg/dL Lactic Acid (0.4-2.0) mmol/L Calcium (8.5-10.1) mg/dL Ferritin (26-388) mg/mL Total Bilirubin (0.2-1.0) mg/dL AST (15-37) U/L ALT (16-63) U/L Alkaline Phosphatase (46-116) U/L Lactate Dehydrogenase 420 H (85-227) U/L Troponin I (0.000-0.056) ng/mL C-Reactive Protein (0.0-0.9) mg/dL Total Protein (6.4-8.2) g/dL Albumin (3.4-5.0) g/dL Globulin Albumin/Globulin Ratio Procalcitonin (<0.10) ng/mL COVID-19 (HEMALATHA) (NEGATIVE) 02/03/20 Range/Units 05:50 WBC (5.0-10.0) 10^3/uL RBC (4.6-6.2) 10^6/uL Hgb (14.0-18.0) g/dL Hct (40.0-54.0) % MCV (80-100) fL MCH (27.0-34.0) pg MCHC (33.0-35.0) g/dL Plt Count (150-450) 10^3/uL Neut % (Auto) (42.2-75.2) % Lymph % (Auto) (20.5-50.1) % [place] % (Auto) (2-8) % Eos % (Auto) (1.0-3.0) % Baso % (Auto) (0.0-1.0) % Add Manual Diff Neutrophils % (Manual) (42-75) % Band Neutrophils % % Lymphocytes % (Manual) (20-50) % Monocytes % (Manual) (2-8) % ESR (0-15) mm/hr PT (9.0-12.0) SEC INR (0.9-1.2) APTT (22.0-34.0) SEC D-Dimer, Quantitative (0-400) ng/mL Sodium 137 (136-145) mmol/L Potassium 3.4 L (3.5-5.1) mmol/L Chloride 102 (98-107) mmol/L Carbon Dioxide 25 (21-32) mmol/L Anion Gap 13.4 H (7-13) mEq/L BUN 9 (7-18) mg/dL Creatinine 1.02 (0.70-1.30) mg/dL Est Cr Clr Drug Dosing 82.79 mL/min Estimated GFR (MDRD) > 60 BUN/Creatinine Ratio (No establ ref range) Glucose 284 H (74-99) mg/dL Lactic Acid (0.4-2.0) mmol/L Calcium 8.0 L (8.5-10.1) mg/dL Ferritin (26-388) mg/mL Total Bilirubin (0.2-1.0) mg/dL AST (15-37) U/L ALT (16-63) U/L Alkaline Phosphatase (46-116) U/L Lactate Dehydrogenase (85-227) U/L Troponin I (0.000-0.056) ng/mL C-Reactive Protein (0.0-0.9) mg/dL Total Protein (6.4-8.2) g/dL Albumin (3.4-5.0) g/dL Globulin Albumin/Globulin Ratio Procalcitonin (<0.10) ng/mL COVID-19 (HEMALATHA) (NEGATIVE) Med Orders - Current: Current Medications Acetaminophen (Tylenol) 650 mg PO Q4H PRN PRN Reason: Pain (Mild 1-3)/fever Dexamethasone (Dexamethasone) 6 mg PO DAILY [facility] Last Admin: 02/03/20 08:44 Dose: Not Given Documented by: Docusate Sodium (Colace) 100 mg PO BID PRN PRN Reason: Constipation Enoxaparin Sodium (Lovenox) 40 mg SUBCUT Q12HR MEL Last Admin: 02/03/20 08:20 Dose: 40 mg Documented by: REMDESIVIR (EUA) 100 mg/ (Sodium Chloride) 230 mls @ 460 mls/hr IV Q24H [facility] Stop: 02/06/20 18:29 Insulin Glargine (Lantus) 10 unit SUBCUT BEDTIME [facility] Insulin Human Lispro (Humalog) 0 unit SUBCUT WITHMEALSANDBED [facility]; Protocol Ondansetron HCl (Zofran Odt) 4 mg PO Q4H PRN PRN Reason: nausea, able to take PO Potassium Chloride (Klor-Con 10) 40 meq PO ONETIME ONE Stop: 02/03/20 10:47 Sodium Chloride (Saline Flush) 10 ml FLUSH ASDIRECTED PRN PRN Reason: Keep Vein Open Last Admin: 02/02/20 10:38 Dose: 10 ml Documented by: Sodium Chloride (Saline Flush) 30 ml IV DAILY@1830 [facility] Stop: 02/06/20 18:31 Last Admin: 02/03/20 04:19 Dose: 30 ml Documented by: Discontinued Medications Azithromycin (Zithromax) 500 mg PO ONETIME ONE Stop: 02/02/20 11:40 Last Admin: 02/02/20 11:54 Dose: 500 mg Documented by: Dexamethasone (Dexamethasone) 8 mg IVPUSH ONETIME ONE Stop: 02/02/20 11:40 Last Admin: 02/02/20 11:55 Dose: 8 mg Documented by: Dexamethasone (Dexamethasone) 6 mg PO DAILY [facility] Enoxaparin Sodium (Lovenox) 40 mg SUBCUT DAILY [facility] Ceftriaxone Sodium 2 gm/ (Sodium Chloride) 100 mls @ 200 mls/hr IV ONETIME ONE Stop: 02/02/20 12:07 Last Admin: 02/02/20 11:54 Dose: 200 mls/hr Documented by: Potassium Chloride/Sodium Chloride (Normal Saline With 40 Meq Kcl) 1,000 mls @ 250 mls/hr IV ASDIRECTED [facility] Last Admin: 02/02/20 12:11 Dose: 250 mls/hr Documented by: Potassium Chloride/Sodium Chloride (Normal Saline With 20 Meq Kcl) 1,000 mls @ 100 mls/hr IV ASDIRECTED [facility] Ceftriaxone Sodium 1 gm/ (Sodium Chloride) 100 mls @ 200 mls/hr IV Q24H [facility] Last Admin: 02/02/20 16:05 Dose: 200 mls/hr Documented by: Azithromycin 500 mg/ Sodium (Chloride) 250 mls @ 250 mls/hr IV Q24H [facility] Last Admin: 02/02/20 16:54 Dose: 250 mls/hr Documented by: REMDESIVIR (EUA) 200 mg/ (Sodium Chloride) 250 mls @ 500 mls/hr IV ONETIME ONE Stop: 02/02/20 18:29 Last Admin: 02/02/20 20:06 Dose: 500 mls/hr Documented by: Sterile Water (Sterile Water For Injection) Confirm Administered Dose 40 mls @ as directed .ROUTE .STK-MED ONE Stop: 02/02/20 19:24 Last Admin: 02/03/20 04:17 Dose: Not Given Documented by: Iopamidol (Isovue-370 (76%)) 100 ml IVPUSH ONETIME ONE Stop: 02/02/20 12:20 Last Admin: 02/02/20 12:51 Dose: 79 ml Documented by: Ondansetron HCl (Zofran) 4 mg IV ONETIME ONE Stop: 02/02/20 11:53 Last Admin: 02/02/20 11:58 Dose: 4 mg Documented by: Potassium Chloride (Klor-Con 10) 40 meq PO ONETIME ONE Stop: 02/02/20 11:53 Last Admin: 02/02/20 12:11 Dose: 40 meq Documented by: Potassium Chloride (Klor-Con 10) 40 meq PO ONETIME ONE Stop: 02/02/20 19:01 Last Admin: 02/02/20 18:35 Dose: Not Given Documented by: - Exam Quality Assessment: Supplemental Oxygen General: Alert, Oriented Neck: Supple Lungs: Normal Respiratory Effort, Decreased Breath Sounds, Rhonchi (Mostly right side) Cardiovascular: Regular Rate, Regular Rhythm GI/Abdominal Exam: Normal Bowel Sounds, Soft, Non-Tender Extremities: No Pedal Edema Sepsis Event Note - Evaluation Sepsis Screening Result: No Definite Risk - Focused Exam Vital Signs: Vital Signs Temp Pulse Resp BP BP Pulse Ox 02/03/20 08:20 99.6 F 91 16 149/80 H 90 L 02/03/20 05:00 99.4 F 83 24 H 173/77 H 92 L - Problem List & Annotations (1) COVID-19 determined by clinical diagnostic criteria SNOMED Code(s): 927043293, 205672178 Code(s): U07.1 - COVID-19 Status: Acute Current Visit: Yes (2) Pneumonia SNOMED Code(s): 731971999 Code(s): J18.9 - PNEUMONIA, UNSPECIFIED ORGANISM Status: Acute Current Visit: Yes Qualifiers: Pneumonia type: due to unspecified organism Laterality: bilateral Lung location: unspecified part of lung Qualified Code(s): J18.9 - Pneumonia, unspecified organism - Problem List Review Problem List Initiated/Reviewed/Updated: Yes - My Orders Last 24 Hours: My Active Orders 02/02/20 13:50 CULTURE SPUTUM + SMEAR [RM] Routine 02/02/20 13:52 Oxygen Therapy [RC] .PRN Up With Assistance [RC] ASDIRECTED VTE/DVT Education [RC] PER UNIT ROUTINE Vital Signs [RC] Q4H Acetaminophen [Tylenol] 650 mg PO Q4H PRN Docusate Sodium [Colace] 100 mg PO BID PRN Ondansetron [Zofran ODT] 4 mg PO Q4H PRN Resuscitation Status Routine 02/02/20 13:53 Antiembolic Hose [OM.PC] Per Unit Routine 02/02/20 13:54 Antiembolic Devices [RC] 02/02/20 14:51 Notify Provider Consults [RC] ASDIRECTED Consult to Physician [CONS] Routine 02/02/20 16:21 Isolation [COMM] Stat 02/02/20 Dinner General [Regular Diet] [DIET] 02/02/20 18:30 Sodium Chloride 0.9% [Saline Flush] 30 ml IV DAILY@1830 02/02/20 21:00 Enoxaparin [Lovenox] 40 mg SUBCUT Q12HR 02/03/20 05:50 D-DIMER [REF] Routine 02/03/20 06:15 CLOSTRIDIUM DIFFICILE TOX RFLX [MREF] Routine 02/03/20 08:00 dexAMETHasone 6 mg PO DAILY 02/03/20 10:40 Glucose [Blood Glucose Check, Bedside] [RC] QIDACANDBED 02/03/20 10:46 Potassium Chloride [Klor-Con 10] 40 meq PO ONETIME ONE 02/03/20 11:00 Insulin Lispro [HumaLOG] See Protocol SUBCUT ACBED 02/03/20 18:00 Remdesivir (Eua) [Remdesivir (EUA)] 100 mg Sodium Chloride 0.9% [Normal Saline] 230 ml IV Q24H 02/03/20 21:00 Insulin Glarg,Human.Rec.Analog [LantUS] 10 unit SUBCUT BEDTIME 02/04/20 05:11 CRP [C-REACTIVE PROTEIN] [CHEM] AM DD [D-DIMER QUANTITATIVE] [COAG] AM GLYCOSYLATED HEMOGLOBIN,HGBA1C [CHEM] AM HEPATIC FUNCTION PANEL,HFP [CHEM] AM SEDIMENTATION RATE MANUAL [HEME] AM 02/05/20 05:11 BASIC METABOLIC PANEL,BMP [CHEM] AM CBC WITH AUTO DIFF [HEME] AM CRP [C-REACTIVE PROTEIN] [CHEM] AM DD [D-DIMER QUANTITATIVE] [COAG] AM HEPATIC FUNCTION PANEL,HFP [CHEM] AM SEDIMENTATION RATE MANUAL [HEME] AM 02/06/20 05:11 BASIC METABOLIC PANEL,BMP [CHEM] AM CBC WITH AUTO DIFF [HEME] AM CRP [C-REACTIVE PROTEIN] [CHEM] AM DD [D-DIMER QUANTITATIVE] [COAG] AM HEPATIC FUNCTION PANEL,HFP [CHEM] AM SEDIMENTATION RATE MANUAL [HEME] AM 02/07/20 05:11 BASIC METABOLIC PANEL,BMP [CHEM] AM CBC WITH AUTO DIFF [HEME] AM CRP [C-REACTIVE PROTEIN] [CHEM] AM DD [D-DIMER QUANTITATIVE] [COAG] AM HEPATIC FUNCTION PANEL,HFP [CHEM] AM SEDIMENTATION RATE MANUAL [HEME] AM 02/08/20 05:11 BASIC METABOLIC PANEL,BMP [CHEM] AM CBC WITH AUTO DIFF [HEME] AM - Plan Plan:: 56-year-old on no medications, no allergy. No diagnosed chronic medical disease. He presented with shortness of breath. Clinical history, exposure history and CT of the chest compatible with COVID 19 related viral pneumonia Rapid Covid test nevertheless was negative. Pro-calcitonin test was low, unlikely bacterial pneumonia causing similar symptoms. - We will stop antibiotics Likely diagnosis so is Covid 19 pneumonia We will consult ID Started treatment with dexamethasone, remdesivir. Acute hypoxemic respiratory failure Supplemental oxygen as needed Follow closely for deterioration Hypokalemia We'll continue to replace and recheck Elevated blood sugars are noted This is likely due to steroids Possible underlying undiagnosed diabetes We will check hemoglobin A1c Add supplemental insulin Start Lantus in the evenings Follow blood sugars Hypoglycemia treatment as needed DVT prophylaxis We'll provide aggressive DVT prophylaxis in view of probable Covid 19 infection Use Lovenox 40 mg twice a day
[2020-02-03] MEDS ORDERED: Potassium Chloride 10 MEQ Tab.ER PO ONE (11:00)
[2020-02-03] MEDS: Insulin Lispro 100 Units/ML 3 ML Vial SUBCUT SCH ×3 (12:15→21:10)
--- NOTE | 2020-02-03 13:45 | PCM.SN.2 ---
- Free Text/Narrative Note: discussed code status with patient wish to be Full code
[2020-02-03] MEDS ORDERED: Enoxaparin 40 MG/0.4 ML Syringe SUBCUT SCH (15:00)
[2020-02-03] MEDS: Sodium Chloride 0.9% 10 ML Syringe IV SCH (18:44)
[2020-02-03] MEDS ORDERED: Insulin Glarg,Human.Rec.Analog 100 Unit/ML SUBCUT SCH (21:00)
[2020-02-03] MEDS: Insulin Glarg,Human.Rec.Analog 100 Unit/ML SUBCUT SCH (21:10)
[2020-02-04 07:16] LABS: HEMOGLOBIN A1C 8.7 % (<5.7)
[2020-02-04] MEDS: Insulin Lispro 100 Units/ML 3 ML Vial SUBCUT SCH ×4 (09:00→21:02)
[2020-02-04] MEDS: Enoxaparin 40 MG/0.4 ML Syringe SUBCUT SCH ×2 (09:02→21:00)
[2020-02-04] MEDS: Dexamethasone 4 MG Tab PO SCH (09:02)
[2020-02-04 11:07] LABS: ANION GAP 12.3 mEq/L (7-13); CHLORIDE,CL 103 mmol/L (98-107); SODIUM,NA 138 mmol/L (136-145)
--- NOTE | 2020-02-04 11:36 | PCM.PN ---
- General Info Date of Service: 02/04/20 Admission Dx/Problem (Free Text): Admission Diagnosis/Problem Admission Diagnosis/Problem Pneumonia Subjective Update: Remained stable, oxygen requirement is nevertheless higher this morning around 6 L nasal cannula oxygen Has cough, nonproductive. No fever. Feels his breathing has improved. He is feeling generally well No associated chest pain, no diarrhea, no abdominal pain. Functional Status: Reports: Tolerating Diet - Review of Systems General: Denies: Fever Pulmonary: Reports: Shortness of Breath Cardiovascular: Denies: Chest Pain (Improved), Edema Neurological: Denies: Confusion - Patient Data Vitals - Most Recent: Last Vital Signs Temp 98.4 F 02/04/20 08:48 Pulse 76 02/04/20 08:48 Resp 20 02/04/20 08:48 BP 147/84 H 02/04/20 08:48 Pulse Ox 90 L 02/04/20 08:48 Weight - Most Recent: 239 lb 3.2 oz I&O - Last 24 Hours: Intake & Output 02/03/20 02/04/20 02/04/20 22:59 06:59 14:59 Intake Total 500 Balance 500 Lab Results Last 24 Hours: Laboratory Results - last 24 hr 02/03/20 02/03/20 02/03/20 Range/Units 05:50 11:31 17:21 WBC (5.0-10.0) 10^3/uL RBC (4.6-6.2) 10^6/uL Hgb (14.0-18.0) g/dL Hct (40.0-54.0) % MCV (80-100) fL MCH (27.0-34.0) pg MCHC (33.0-35.0) g/dL Plt Count (150-450) 10^3/uL Neut % (Auto) (42.2-75.2) % Lymph % (Auto) (20.5-50.1) % Put[place] % (Auto) (2-8) % Eos % (Auto) (1.0-3.0) % Baso % (Auto) (0.0-1.0) % ESR (0-15) mm/hr D-Dimer See scanned report Sodium (136-145) mmol/L Potassium (3.5-5.1) mmol/L Chloride (98-107) mmol/L Carbon Dioxide (21-32) mmol/L Anion Gap (7-13) mEq/L BUN (7-18) mg/dL Creatinine (0.70-1.30) mg/dL Est Cr Clr Drug Dosing mL/min Estimated GFR (MDRD) Glucose (74-99) mg/dL POC Glucose 329 H 313 H (70-105) mg/dl Hemoglobin A1c (<5.7) % Calcium (8.5-10.1) mg/dL Total Bilirubin (0.2-1.0) mg/dL Direct Bilirubin (0.0-0.2) mg/dL Indirect Bilirubin AST (15-37) U/L ALT (16-63) U/L Alkaline Phosphatase (46-116) U/L C-Reactive Protein (0.0-0.9) mg/dL Total Protein (6.4-8.2) g/dL Albumin (3.4-5.0) g/dL Globulin Albumin/Globulin Ratio 02/03/20 02/04/20 02/04/20 Range/Units 20:35 06:20 06:20 WBC (5.0-10.0) 10^3/uL RBC (4.6-6.2) 10^6/uL Hgb (14.0-18.0) g/dL Hct (40.0-54.0) % MCV (80-100) fL MCH (27.0-34.0) pg MCHC (33.0-35.0) g/dL Plt Count (150-450) 10^3/uL Neut % (Auto) (42.2-75.2) % Lymph % (Auto) (20.5-50.1) % Putnam % (Auto) (2-8) % Eos % (Auto) (1.0-3.0) % Baso % (Auto) (0.0-1.0) % ESR 67 H (0-15) mm/hr D-Dimer Sodium (136-145) mmol/L Potassium (3.5-5.1) mmol/L Chloride (98-107) mmol/L Carbon Dioxide (21-32) mmol/L Anion Gap (7-13) mEq/L BUN (7-18) mg/dL Creatinine (0.70-1.30) mg/dL Est Cr Clr Drug Dosing mL/min Estimated GFR (MDRD) Glucose (74-99) mg/dL POC Glucose 475 H* (70-105) mg/dl Hemoglobin A1c (<5.7) % Calcium (8.5-10.1) mg/dL Total Bilirubin 0.5 (0.2-1.0) mg/dL Direct Bilirubin 0.2 (0.0-0.2) mg/dL Indirect Bilirubin 0.3 AST 21 (15-37) U/L ALT 33 (16-63) U/L Alkaline Phosphatase 96 (46-116) U/L C-Reactive Protein 7.2 H (0.0-0.9) mg/dL Total Protein 6.9 (6.4-8.2) g/dL Albumin 2.3 L (3.4-5.0) g/dL Globulin 4.6 Albumin/Globulin Ratio 0.50 02/04/20 02/04/20 02/04/20 Range/Units 06:20 06:20 06:20 WBC 9.0 (5.0-10.0) 10^3/uL RBC 4.83 (4.6-6.2) 10^6/uL Hgb 14.2 (14.0-18.0) g/dL Hct 39.9 L (40.0-54.0) % MCV 82.6 (80-100) fL MCH 29.4 (27.0-34.0) pg MCHC 35.6 H (33.0-35.0) g/dL Plt Count 337 (150-450) 10^3/uL Neut % (Auto) 80.2 H (42.2-75.2) % Lymph % (Auto) 12.0 L (20.5-50.1) % Putnam % (Auto) 7.7 (2-8) % Eos % (Auto) 0.0 L (1.0-3.0) % Baso % (Auto) 0.1 (0.0-1.0) % ESR (0-15) mm/hr D-Dimer Sodium 138 (136-145) mmol/L Potassium 3.3 L (3.5-5.1) mmol/L Chloride 103 (98-107) mmol/L Carbon Dioxide 26 (21-32) mmol/L Anion Gap 12.3 (7-13) mEq/L BUN 12 (7-18) mg/dL Creatinine 0.91 (0.70-1.30) mg/dL Est Cr Clr Drug Dosing 92.80 mL/min Estimated GFR (MDRD) > 60 Glucose 256 H (74-99) mg/dL POC Glucose (70-105) mg/dl Hemoglobin A1c 8.7 H (<5.7) % Calcium 8.2 L (8.5-10.1) mg/dL Total Bilirubin (0.2-1.0) mg/dL Direct Bilirubin (0.0-0.2) mg/dL Indirect Bilirubin AST (15-37) U/L ALT (16-63) U/L Alkaline Phosphatase (46-116) U/L C-Reactive Protein (0.0-0.9) mg/dL Total Protein (6.4-8.2) g/dL Albumin (3.4-5.0) g/dL Globulin Albumin/Globulin Ratio 08/14/20 Range/Units 08:59 WBC (5.0-10.0) 10^3/uL RBC (4.6-6.2) 10^6/uL Hgb (14.0-18.0) g/dL Hct (40.0-54.0) % MCV (80-100) fL MCH (27.0-34.0) pg MCHC (33.0-35.0) g/dL Plt Count (150-450) 10^3/uL Neut % (Auto) (42.2-75.2) % Lymph % (Auto) (20.5-50.1) % [place] % (Auto) (2-8) % Eos % (Auto) (1.0-3.0) % Baso % (Auto) (0.0-1.0) % ESR (0-15) mm/hr D-Dimer Sodium (136-145) mmol/L Potassium (3.5-5.1) mmol/L Chloride (98-107) mmol/L Carbon Dioxide (21-32) mmol/L Anion Gap (7-13) mEq/L BUN (7-18) mg/dL Creatinine (0.70-1.30) mg/dL Est Cr Clr Drug Dosing mL/min Estimated GFR (MDRD) Glucose (74-99) mg/dL POC Glucose 242 H (70-105) mg/dl Hemoglobin A1c (<5.7) % Calcium (8.5-10.1) mg/dL Total Bilirubin (0.2-1.0) mg/dL Direct Bilirubin (0.0-0.2) mg/dL Indirect Bilirubin AST (15-37) U/L ALT (16-63) U/L Alkaline Phosphatase (46-116) U/L C-Reactive Protein (0.0-0.9) mg/dL Total Protein (6.4-8.2) g/dL Albumin (3.4-5.0) g/dL Globulin Albumin/Globulin Ratio Donovan Results Last 24 Hours: Microbiology 02/02/20 11:01 Aerobic Blood Culture - Preliminary Blood - Venous - Lab Draw NO GROWTH AFTER 2 DAYS Anaerobic Blood Culture - Preliminary NO GROWTH AFTER 2 DAYS 02/02/20 10:56 Aerobic Blood Culture - Preliminary Blood - Venous NO GROWTH AFTER 2 DAYS Anaerobic Blood Culture - Preliminary NO GROWTH AFTER 2 DAYS 02/03/20 06:15 Clostridioides difficile (PCR) - Final Stool / Feces 02/03/20 10:33 Gram Stain - Final Sputum - Expectorated Sputum Culture - Preliminary NORMAL RESPIRATORY COLLIN 1 DAY Med Orders - Current: Current Medications Acetaminophen (Tylenol) 650 mg PO Q4H PRN PRN Reason: Pain (Mild 1-3)/fever Dexamethasone (Dexamethasone) 6 mg PO DAILY [facility] Last Admin: 02/04/20 09:02 Dose: 6 mg Documented by: Docusate Sodium (Colace) 100 mg PO BID PRN PRN Reason: Constipation Enoxaparin Sodium (Lovenox) 40 mg SUBCUT Q12HR [facility] Last Admin: 02/04/20 09:02 Dose: 40 mg Documented by: REMDESIVIR (EUA) 100 mg/ (Sodium Chloride) 230 mls @ 460 mls/hr IV Q24H [facility] Stop: 02/06/20 18:29 Last Admin: 02/03/20 17:27 Dose: 460 mls/hr Documented by: Insulin Glargine (Lantus) 20 unit SUBCUT BEDTIME [facility] Last Admin: 02/03/20 21:10 Dose: 20 units Documented by: Insulin Human Lispro (Humalog) 0 unit SUBCUT WITHMEALSANDBED [facility]; Protocol Last Admin: 02/04/20 09:00 Dose: 4 units Documented by: Ondansetron HCl (Zofran Odt) 4 mg PO Q4H PRN PRN Reason: nausea, able to take PO Sodium Chloride (Saline Flush) 10 ml FLUSH ASDIRECTED PRN PRN Reason: Keep Vein Open Last Admin: 02/02/20 10:38 Dose: 10 ml Documented by: Sodium Chloride (Saline Flush) 30 ml IV DAILY@1900 [facility] Stop: 02/06/20 19:01 Last Admin: 02/03/20 18:44 Dose: 30 ml Documented by: Discontinued Medications Azithromycin (Zithromax) 500 mg PO ONETIME ONE Stop: 02/02/20 11:40 Last Admin: 02/02/20 11:54 Dose: 500 mg Documented by: Dexamethasone (Dexamethasone) 8 mg IVPUSH ONETIME ONE Stop: 02/02/20 11:40 Last Admin: 02/02/20 11:55 Dose: 8 mg Documented by: Dexamethasone (Dexamethasone) 6 mg PO DAILY [facility] Enoxaparin Sodium (Lovenox) 40 mg SUBCUT DAILY [facility] Ceftriaxone Sodium 2 gm/ (Sodium Chloride) 100 mls @ 200 mls/hr IV ONETIME ONE Stop: 02/02/20 12:07 Last Admin: 02/02/20 11:54 Dose: 200 mls/hr Documented by: Potassium Chloride/Sodium Chloride (Normal Saline With 40 Meq Kcl) 1,000 mls @ 250 mls/hr IV ASDIRECTED [facility] Last Admin: 02/02/20 12:11 Dose: 250 mls/hr Documented by: Potassium Chloride/Sodium Chloride (Normal Saline With 20 Meq Kcl) 1,000 mls @ 100 mls/hr IV ASDIRECTED [facility] Ceftriaxone Sodium 1 gm/ (Sodium Chloride) 100 mls @ 200 mls/hr IV Q24H [facility] Last Admin: 02/02/20 16:05 Dose: 200 mls/hr Documented by: Azithromycin 500 mg/ Sodium (Chloride) 250 mls @ 250 mls/hr IV Q24H [facility] Last Admin: 02/02/20 16:54 Dose: 250 mls/hr Documented by: REMDESIVIR (EUA) 200 mg/ (Sodium Chloride) 250 mls @ 500 mls/hr IV ONETIME ONE Stop: 02/02/20 18:29 Last Admin: 02/02/20 20:06 Dose: 500 mls/hr Documented by: Sterile Water (Sterile Water For Injection) Confirm Administered Dose 40 mls @ as directed .ROUTE .STK-MED ONE Stop: 02/02/20 19:24 Last Admin: 02/03/20 04:17 Dose: Not Given Documented by: Insulin Glargine (Lantus) 10 unit SUBCUT BEDTIME MEL Iopamidol (Isovue-370 (76%)) 100 ml IVPUSH ONETIME ONE Stop: 02/02/20 12:20 Last Admin: 02/02/20 12:51 Dose: 79 ml Documented by: Ondansetron HCl (Zofran) 4 mg IV ONETIME ONE Stop: 02/02/20 11:53 Last Admin: 02/02/20 11:58 Dose: 4 mg Documented by: Potassium Chloride (Klor-Con 10) 40 meq PO ONETIME ONE Stop: 02/02/20 11:53 Last Admin: 02/02/20 12:11 Dose: 40 meq Documented by: Potassium Chloride (Klor-Con 10) 40 meq PO ONETIME ONE Stop: 02/02/20 19:01 Last Admin: 02/02/20 18:35 Dose: Not Given Documented by: Potassium Chloride (Klor-Con 10) 40 meq PO ONETIME ONE Stop: 02/03/20 11:01 Last Admin: 02/03/20 12:14 Dose: 40 meq Documented by: Sodium Chloride (Saline Flush) 30 ml IV DAILY@1830 MEL Stop: 02/06/20 18:31 Last Admin: 02/03/20 04:19 Dose: 30 ml Documented by: - Exam General: Alert, Oriented Lungs: Normal Respiratory Effort, Decreased Breath Sounds. No: Wheezing Cardiovascular: Regular Rate, Regular Rhythm GI/Abdominal Exam: Normal Bowel Sounds, Soft, Non-Tender Extremities: No Pedal Edema Sepsis Event Note - Evaluation Sepsis Screening Result: No Definite Risk - Focused Exam Vital Signs: Vital Signs Temp Pulse Resp BP Pulse Ox 02/04/20 08:48 98.4 F 76 20 147/84 H 90 L 02/04/20 05:00 93 L 02/04/20 01:00 94 L - Problem List & Annotations (1) COVID-19 determined by clinical diagnostic criteria SNOMED Code(s): 326167876, 877863814 Code(s): U07.1 - COVID-19 Status: Acute Current Visit: Yes (2) Pneumonia SNOMED Code(s): 493988910 Code(s): J18.9 - PNEUMONIA, UNSPECIFIED ORGANISM Status: Acute Current Visit: Yes Qualifiers: Pneumonia type: due to unspecified organism Laterality: bilateral Lung location: unspecified part of lung Qualified Code(s): J18.9 - Pneumonia, unspecified organism - Problem List Review Problem List Initiated/Reviewed/Updated: Yes - My Orders Last 24 Hours: My Active Orders 02/03/20 10:40 Glucose [Blood Glucose Check, Bedside] [RC] QIDACANDBED 02/03/20 12:00 Insulin Lispro [HumaLOG] See Protocol SUBCUT WITHMEALSANDBED 02/03/20 17:10 CORONAVIRUS COVID-19 PCR PHL Routine 02/03/20 18:00 Remdesivir (Eua) [Remdesivir (EUA)] 100 mg Sodium Chloride 0.9% [Normal Saline] 230 ml IV Q24H 02/03/20 19:00 Sodium Chloride 0.9% [Saline Flush] 30 ml IV DAILY@1900 02/03/20 21:00 Insulin Glarg,Human.Rec.Analog [LantUS] 20 unit SUBCUT BEDTIME 02/04/20 06:20 DD [D-DIMER QUANTITATIVE] [COAG] AM 02/05/20 05:11 BASIC METABOLIC PANEL,BMP [CHEM] AM CBC WITH AUTO DIFF [HEME] AM CRP [C-REACTIVE PROTEIN] [CHEM] AM DD [D-DIMER QUANTITATIVE] [COAG] AM HEPATIC FUNCTION PANEL,HFP [CHEM] AM SEDIMENTATION RATE MANUAL [HEME] AM 02/06/20 05:11 BASIC METABOLIC PANEL,BMP [CHEM] AM CBC WITH AUTO DIFF [HEME] AM CRP [C-REACTIVE PROTEIN] [CHEM] AM DD [D-DIMER QUANTITATIVE] [COAG] AM HEPATIC FUNCTION PANEL,HFP [CHEM] AM SEDIMENTATION RATE MANUAL [HEME] AM 02/07/20 05:11 BASIC METABOLIC PANEL,BMP [CHEM] AM CBC WITH AUTO DIFF [HEME] AM CRP [C-REACTIVE PROTEIN] [CHEM] AM DD [D-DIMER QUANTITATIVE] [COAG] AM HEPATIC FUNCTION PANEL,HFP [CHEM] AM SEDIMENTATION RATE MANUAL [HEME] AM 02/08/20 05:11 BASIC METABOLIC PANEL,BMP [CHEM] AM CBC WITH AUTO DIFF [HEME] AM - Plan Plan:: 56-year-old on no medications, no allergy. No diagnosed chronic medical disease. He presented with shortness of breath. Clinical history, exposure history and CT of the chest compatible with COVID 19 related viral pneumonia Onset of infection is likely more than 1014 days prior to presentation Rapid Covid test nevertheless was negative. Repeat Covid test from 02 February was sent out and pending Pro-calcitonin was low, unlikely bacterial pneumonia causing similar symptoms. - On no antibiotics Likely diagnosis so is Covid 19 pneumonia consulted ID Started treatment with dexamethasone, remdesivir. The patient would technically also qualify for convalescent plasma study as organized by [facility]. Nevertheless I believe the patient's active infection has past, we are dealing with residual lung damage. Discussed potential plasma transfusion with the patient, discussed risks and benefits. The decision was to hold off on plasma unless deteriorating and active infection signs are present. Acute hypoxemic respiratory failure Supplemental oxygen as needed Follow closely for deterioration Most likely we'll need home oxygen. Discussed with social work. We'll not be able to arrange this over the weekend. We'll likely have to stay over the weekend. Hypokalemia We'll continue to replace and recheck in the morning Elevated blood sugars are noted This is likely due to steroids Since the hemoglobin A1c is elevated to above 8 the patient likely has previously undiagnosed diabetes Continue with supplemental insulin Continue with Lantus in the evenings Follow blood sugars Hypoglycemia treatment as needed DVT prophylaxis We'll provide aggressive DVT prophylaxis in view of probable Covid 19 infection Use Lovenox 40 mg twice a day
[2020-02-04] MEDS ORDERED: Potassium Chloride 10 MEQ Tab.ER PO ONE (12:00)
[2020-02-04] MEDS: Sodium Chloride 0.9% 10 ML Syringe IV SCH (18:41)
[2020-02-04] MEDS: Insulin Glarg,Human.Rec.Analog 100 Unit/ML SUBCUT SCH (21:01)
[2020-02-05 07:28] LABS: ANION GAP 12.2 mEq/L (7-13); CHLORIDE,CL 102 mmol/L (98-107); SODIUM,NA 139 mmol/L (136-145)
[2020-02-05] MEDS: Enoxaparin 40 MG/0.4 ML Syringe SUBCUT SCH ×2 (09:00→20:40)
[2020-02-05] MEDS: Dexamethasone 4 MG Tab PO SCH (09:00)
[2020-02-05] MEDS: Insulin Lispro 100 Units/ML 3 ML Vial SUBCUT SCH ×4 (09:01→20:39)
--- NOTE | 2020-02-05 12:52 | PCM.PN ---
- General Info Date of Service: 02/05/20 Admission Dx/Problem (Free Text): Admission Diagnosis/Problem Admission Diagnosis/Problem Pneumonia ( COVID-19 positive) Subjective Update: Pt was seen in room, Remained stable, oxygen requirement is around 6 L nasal cannula oxygen, appetite is good, Has cough, nonproductive. No fever. Feels his breathing has improved. He is feeling generally well, No associated chest pain, no diarrhea, no abdominal pain. will need supplemental oxygen to go home Functional Status: Reports: Pain Controlled, Tolerating Diet, Ambulating (inside the room), Urinating - Review of Systems General: Reports: Weakness, Malaise, Appetite (acceptable). Denies: Fever, Chills Pulmonary: Reports: Shortness of Breath, Cough, Sputum. Denies: Wheezing Cardiovascular: Reports: Dyspnea on Exertion. Denies: Chest Pain, Edema Gastrointestinal: Denies: Abdominal Pain, Diarrhea, Nausea, Vomiting Genitourinary: Denies: Dysuria, Burning, Urgency, Flank Pain Musculoskeletal: Denies: Neck Pain, Arm Pain, Hand Pain, Leg Pain, Joint Swelling Skin: Denies: Cyanosis, Jaundice, Bruising, Pruritis Neurological: Denies: Confusion, Dizziness, Numbness, Tremors Psychiatric: Denies: Confusion, Anxiety, Agitation - Patient Data Vitals - Most Recent: Last Vital Signs Temp 36.6 C 02/05/20 08:00 Pulse 87 02/05/20 08:00 Resp 20 02/05/20 08:00 BP 151/88 H 02/05/20 08:00 Pulse Ox 90 L 02/05/20 08:00 Weight - Most Recent: 108.499 kg I&O - Last 24 Hours: Intake & Output 02/04/20 02/05/20 02/05/20 22:59 06:59 14:59 Intake Total 500 Balance 500 Lab Results Last 24 Hours: Laboratory Results - last 24 hr 02/04/20 02/04/20 02/04/20 Range/Units 06:20 17:37 20:57 WBC (5.0-10.0) 10^3/uL RBC (4.6-6.2) 10^6/uL Hgb (14.0-18.0) g/dL Hct (40.0-54.0) % MCV (80-100) fL MCH (27.0-34.0) pg MCHC (33.0-35.0) g/dL Plt Count (150-450) 10^3/uL Neut % (Auto) (42.2-75.2) % Lymph % (Auto) (20.5-50.1) % Winkler % (Auto) (2-8) % Eos % (Auto) (1.0-3.0) % Baso % (Auto) (0.0-1.0) % ESR (0-15) mm/hr D-Dimer, Quantitative 188 (0-400) ng/mL Sodium (136-145) mmol/L Potassium (3.5-5.1) mmol/L Chloride (98-107) mmol/L Carbon Dioxide (21-32) mmol/L Anion Gap (7-13) mEq/L BUN (7-18) mg/dL Creatinine (0.70-1.30) mg/dL Est Cr Clr Drug Dosing mL/min Estimated GFR (MDRD) Glucose (74-99) mg/dL POC Glucose 296 H 333 H (70-105) mg/dl Calcium (8.5-10.1) mg/dL Total Bilirubin (0.2-1.0) mg/dL Direct Bilirubin (0.0-0.2) mg/dL Indirect Bilirubin AST (15-37) U/L ALT (16-63) U/L Alkaline Phosphatase (46-116) U/L C-Reactive Protein (0.0-0.9) mg/dL Total Protein (6.4-8.2) g/dL Albumin (3.4-5.0) g/dL Globulin Albumin/Globulin Ratio 02/05/20 02/05/20 02/05/20 Range/Units 06:45 06:45 06:45 WBC 9.8 (5.0-10.0) 10^3/uL RBC 4.63 (4.6-6.2) 10^6/uL Hgb 13.6 L (14.0-18.0) g/dL Hct 38.1 L (40.0-54.0) % MCV 82.3 (80-100) fL MCH 29.4 (27.0-34.0) pg MCHC 35.7 H (33.0-35.0) g/dL Plt Count 326 (150-450) 10^3/uL Neut % (Auto) 81.2 H (42.2-75.2) % Lymph % (Auto) 11.6 L (20.5-50.1) % Winkler % (Auto) 7.0 (2-8) % Eos % (Auto) 0.0 L (1.0-3.0) % Baso % (Auto) 0.2 (0.0-1.0) % ESR 68 H (0-15) mm/hr D-Dimer, Quantitative 252 (0-400) ng/mL Sodium 139 (136-145) mmol/L Potassium 3.2 L (3.5-5.1) mmol/L Chloride 102 (98-107) mmol/L Carbon Dioxide 28 (21-32) mmol/L Anion Gap 12.2 (7-13) mEq/L BUN 14 (7-18) mg/dL Creatinine 0.89 (0.70-1.30) mg/dL Est Cr Clr Drug Dosing 94.88 mL/min Estimated GFR (MDRD) > 60 Glucose 224 H (74-99) mg/dL POC Glucose (70-105) mg/dl Calcium 8.0 L (8.5-10.1) mg/dL Total Bilirubin 0.5 (0.2-1.0) mg/dL Direct Bilirubin 0.2 (0.0-0.2) mg/dL Indirect Bilirubin 0.3 AST 22 (15-37) U/L ALT 30 (16-63) U/L Alkaline Phosphatase 93 (46-116) U/L C-Reactive Protein 4.6 H (0.0-0.9) mg/dL Total Protein 6.9 (6.4-8.2) g/dL Albumin 2.3 L (3.4-5.0) g/dL Globulin 4.6 Albumin/Globulin Ratio 0.50 08/15/20 Range/Units 08:58 WBC (5.0-10.0) 10^3/uL RBC (4.6-6.2) 10^6/uL Hgb (14.0-18.0) g/dL Hct (40.0-54.0) % MCV (80-100) fL MCH (27.0-34.0) pg MCHC (33.0-35.0) g/dL Plt Count (150-450) 10^3/uL Neut % (Auto) (42.2-75.2) % Lymph % (Auto) (20.5-50.1) % Winkler % (Auto) (2-8) % Eos % (Auto) (1.0-3.0) % Baso % (Auto) (0.0-1.0) % ESR (0-15) mm/hr D-Dimer, Quantitative (0-400) ng/mL Sodium (136-145) mmol/L Potassium (3.5-5.1) mmol/L Chloride (98-107) mmol/L Carbon Dioxide (21-32) mmol/L Anion Gap (7-13) mEq/L BUN (7-18) mg/dL Creatinine (0.70-1.30) mg/dL Est Cr Clr Drug Dosing mL/min Estimated GFR (MDRD) Glucose (74-99) mg/dL POC Glucose 173 H (70-105) mg/dl Calcium (8.5-10.1) mg/dL Total Bilirubin (0.2-1.0) mg/dL Direct Bilirubin (0.0-0.2) mg/dL Indirect Bilirubin AST (15-37) U/L ALT (16-63) U/L Alkaline Phosphatase (46-116) U/L C-Reactive Protein (0.0-0.9) mg/dL Total Protein (6.4-8.2) g/dL Albumin (3.4-5.0) g/dL Globulin Albumin/Globulin Ratio Donovan Results Last 24 Hours: Microbiology 02/02/20 11:01 Aerobic Blood Culture - Preliminary Blood - Venous - Lab Draw NO GROWTH AFTER 3 DAYS Anaerobic Blood Culture - Preliminary NO GROWTH AFTER 3 DAYS 02/02/20 10:56 Aerobic Blood Culture - Preliminary Blood - Venous NO GROWTH AFTER 3 DAYS Anaerobic Blood Culture - Preliminary NO GROWTH AFTER 3 DAYS 02/03/20 06:15 Clostridioides difficile (PCR) - Final Stool / Feces 02/03/20 10:33 Gram Stain - Final Sputum - Expectorated Sputum Culture - Preliminary NORMAL RESPIRATORY COLLIN 1 DAY Med Orders - Current: Current Medications Acetaminophen (Tylenol) 650 mg PO Q4H PRN PRN Reason: Pain (Mild 1-3)/fever Dexamethasone (Dexamethasone) 6 mg PO DAILY [facility] Last Admin: 02/05/20 09:00 Dose: 6 mg Documented by: Docusate Sodium (Colace) 100 mg PO BID PRN PRN Reason: Constipation Enoxaparin Sodium (Lovenox) 40 mg SUBCUT Q12HR [facility] Last Admin: 02/05/20 09:00 Dose: 40 mg Documented by: REMDESIVIR (EUA) 100 mg/ (Sodium Chloride) 230 mls @ 460 mls/hr IV Q24H [facility] Stop: 02/06/20 18:29 Last Admin: 02/04/20 17:43 Dose: 460 mls/hr Documented by: Insulin Glargine (Lantus) 20 unit SUBCUT BEDTIME [facility] Last Admin: 02/04/20 21:01 Dose: 20 units Documented by: Insulin Human Lispro (Humalog) 0 unit SUBCUT WITHMEALSANDBED [facility]; Protocol Last Admin: 02/05/20 09:01 Dose: 2 units Documented by: Ondansetron HCl (Zofran Odt) 4 mg PO Q4H PRN PRN Reason: nausea, able to take PO Sodium Chloride (Saline Flush) 10 ml FLUSH ASDIRECTED PRN PRN Reason: Keep Vein Open Last Admin: 02/02/20 10:38 Dose: 10 ml Documented by: Sodium Chloride (Saline Flush) 30 ml IV DAILY@1900 [facility] Stop: 02/06/20 19:01 Last Admin: 02/04/20 18:41 Dose: 30 ml Documented by: Discontinued Medications Azithromycin (Zithromax) 500 mg PO ONETIME ONE Stop: 02/02/20 11:40 Last Admin: 02/02/20 11:54 Dose: 500 mg Documented by: Dexamethasone (Dexamethasone) 8 mg IVPUSH ONETIME ONE Stop: 02/02/20 11:40 Last Admin: 02/02/20 11:55 Dose: 8 mg Documented by: Dexamethasone (Dexamethasone) 6 mg PO DAILY [facility] Enoxaparin Sodium (Lovenox) 40 mg SUBCUT DAILY [facility] Ceftriaxone Sodium 2 gm/ (Sodium Chloride) 100 mls @ 200 mls/hr IV ONETIME ONE Stop: 02/02/20 12:07 Last Admin: 02/02/20 11:54 Dose: 200 mls/hr Documented by: Potassium Chloride/Sodium Chloride (Normal Saline With 40 Meq Kcl) 1,000 mls @ 250 mls/hr IV ASDIRECTED [facility] Last Admin: 02/02/20 12:11 Dose: 250 mls/hr Documented by: Potassium Chloride/Sodium Chloride (Normal Saline With 20 Meq Kcl) 1,000 mls @ 100 mls/hr IV ASDIRECTED [facility] Ceftriaxone Sodium 1 gm/ (Sodium Chloride) 100 mls @ 200 mls/hr IV Q24H [facility] Last Admin: 02/02/20 16:05 Dose: 200 mls/hr Documented by: Azithromycin 500 mg/ Sodium (Chloride) 250 mls @ 250 mls/hr IV Q24H [facility] Last Admin: 02/02/20 16:54 Dose: 250 mls/hr Documented by: REMDESIVIR (EUA) 200 mg/ (Sodium Chloride) 250 mls @ 500 mls/hr IV ONETIME ONE Stop: 02/02/20 18:29 Last Admin: 02/02/20 20:06 Dose: 500 mls/hr Documented by: Sterile Water (Sterile Water For Injection) Confirm Administered Dose 40 mls @ as directed .ROUTE .STK-MED ONE Stop: 02/02/20 19:24 Last Admin: 02/03/20 04:17 Dose: Not Given Documented by: Insulin Glargine (Lantus) 10 unit SUBCUT BEDTIME [facility] Iopamidol (Isovue-370 (76%)) 100 ml IVPUSH ONETIME ONE Stop: 02/02/20 12:20 Last Admin: 02/02/20 12:51 Dose: 79 ml Documented by: Ondansetron HCl (Zofran) 4 mg IV ONETIME ONE Stop: 02/02/20 11:53 Last Admin: 02/02/20 11:58 Dose: 4 mg Documented by: Potassium Chloride (Klor-Con 10) 40 meq PO ONETIME ONE Stop: 02/02/20 11:53 Last Admin: 02/02/20 12:11 Dose: 40 meq Documented by: Potassium Chloride (Klor-Con 10) 40 meq PO ONETIME ONE Stop: 02/02/20 19:01 Last Admin: 02/02/20 18:35 Dose: Not Given Documented by: Potassium Chloride (Klor-Con 10) 40 meq PO ONETIME ONE Stop: 02/03/20 11:01 Last Admin: 02/03/20 12:14 Dose: 40 meq Documented by: Potassium Chloride (Klor-Con 10) 40 meq PO ONETIME ONE Stop: 02/04/20 12:01 Last Admin: 02/04/20 12:32 Dose: 40 meq Documented by: Sodium Chloride (Saline Flush) 30 ml IV DAILY@1830 [facility] Stop: 02/06/20 18:31 Last Admin: 02/03/20 04:19 Dose: 30 ml Documented by: - Exam Quality Assessment: Supplemental Oxygen, Urine Catheter, DVT Prophylaxis General: Alert, Oriented, Cooperative, No Acute Distress HEENT: Pupils Equal, Pupils Reactive, EOMI Lungs: Clear to Auscultation, Decreased Breath Sounds. No: Crackles, Wheezing Cardiovascular: Regular Rate, Regular Rhythm, No Murmurs GI/Abdominal Exam: Normal Bowel Sounds, Soft, Non-Tender, No Distention (Male) Exam: Deferred Back Exam: Normal Inspection Extremities: Normal Inspection, No Pedal Edema Skin: Warm, Dry, Intact Neurological: No New Focal Deficit Psy/Mental Status: Alert, Normal Affect, Normal Mood Sepsis Event Note - Evaluation Sepsis Screening Result: No Definite Risk - Focused Exam Vital Signs: Vital Signs Temp Pulse Resp BP Pulse Ox 02/05/20 08:00 36.6 C 87 20 151/88 H 90 L 02/05/20 04:00 36.8 C 70 18 145/72 H 92 L - Problem List Review Problem List Initiated/Reviewed/Updated: Yes - Plan Plan:: 56-year-old on no medications, no allergy. No previous diagnosis of chronic medical disease ( like hypertension, Diabetes or Lung disease). He presented with shortness of breath. Clinical history, exposure history and CT of the chest compatible with COVID 19 related viral pneumonia Onset of infection is likely more than 10-14 days prior to presentation. Rapid Covid -19 test nevertheless was negative. Repeat Covid test from 02 February was sent out and pending Pro-calcitonin was low, unlikely bacterial pneumonia causing similar symptoms. - On no antibiotics Likely diagnosis is Covid 19 pneumonia, consulted ID and Dr. Prasad ( ID) is also remotely following the pt He is Started treatment with dexamethasone, remdesivir. The patient would technically also qualify for convalescent plasma study as organized by [facility]. Nevertheless I believe the patient's active infection has past, we are dealing with residual lung damage. Discussed potential plasma transfusion with the patient, discussed risks and benefits. The decision was to hold off on plasma unless deteriorating and active infection signs are present and not improving. Impression and Plan: 1. Acute hypoxemic respiratory failure secondary to COVID-19 pneumonia - He is needing Supplemental oxygen and now he is at 6 L and will try to wean off as Tolerated - Follow closely for deterioration, he is stable and will continue current treatment plan - Most likely he will need home oxygen. and We'll not be able to arrange this over the weekend. will have to stay over the weekend and can be D/C on Friday 2. Hypokalemia: Will give Potassium Chloride 40 meq PO X 1 now - We'll continue to replace and recheck in the morning 3. Elevated blood sugars : This is likely due to steroids but his hemoglobin A1c is elevated to above 8 the patient likely has previously undiagnosed diabetes -Will Continue with supplemental insulin - Will Continue with Lantus in the evenings - Follow blood sugars - Hypoglycemia treatment as needed 4. DVT prophylaxis We'll provide aggressive DVT prophylaxis in view of probable Covid 19 infection Use Lovenox 40 mg twice a day
[2020-02-05] MEDS ORDERED: Potassium Chloride 10 MEQ Tab.ER PO ONE (12:55)
[2020-02-05] MEDS ORDERED: Water For Injection, Sterile 20 ML ONE (17:12)
[2020-02-05] MEDS: Sodium Chloride 0.9% 10 ML Syringe IV SCH (18:16)
[2020-02-05] MEDS: Insulin Glarg,Human.Rec.Analog 100 Unit/ML SUBCUT SCH (20:38)
[2020-02-06 07:08] LABS: ANION GAP 9.6 mEq/L (7-13); CHLORIDE,CL 101 mmol/L (98-107); SODIUM,NA 138 mmol/L (136-145)
[2020-02-06] MEDS: Enoxaparin 40 MG/0.4 ML Syringe SUBCUT SCH ×2 (08:37→20:50)
[2020-02-06] MEDS: Dexamethasone 4 MG Tab PO SCH (08:37)
[2020-02-06] MEDS: Insulin Lispro 100 Units/ML 3 ML Vial SUBCUT SCH ×4 (12:14→20:47)
--- NOTE | 2020-02-06 12:45 | PCM.PN ---
- General Info Date of Service: 02/06/20 Admission Dx/Problem (Free Text): Admission Diagnosis/Problem Admission Diagnosis/Problem Pneumonia ( COVID-19 positive) Subjective Update: Pt was seen in room, Remained stable, oxygen requirement is around 5 L nasal cannula oxygen, appetite is good, Has cough, nonproductive. No fever. Feels his breathing has improved. He is feeling generally well, No associated chest pain, no diarrhea, no abdominal pain. will need supplemental oxygen to go home Functional Status: Reports: Pain Controlled, Tolerating Diet, Ambulating (inside the room but 02 sat drops to 70's), Urinating - Review of Systems General: Reports: Weakness, Malaise, Appetite (gtood). Denies: Fever, Chills HEENT: Denies: Headaches, Sinus Congestion, Sore Throat, Visual Changes Pulmonary: Reports: Shortness of Breath, Cough, Sputum. Denies: Wheezing Cardiovascular: Denies: Chest Pain, Lightheadedness Gastrointestinal: Denies: Abdominal Pain, Difficulty Swallowing, Nausea, Vomiting Genitourinary: Denies: Dysuria, Burning, Flank Pain Musculoskeletal: Denies: Neck Pain, Leg Pain, Foot Pain Skin: Denies: Cyanosis, Jaundice, Bruising, Pruritis, Rash Neurological: Denies: Confusion, Dizziness, Tremors Psychiatric: Denies: Confusion, Anxiety - Patient Data Vitals - Most Recent: Last Vital Signs Temp 37.2 C 02/06/20 08:00 Pulse 81 02/06/20 08:00 Resp 20 02/06/20 08:00 BP 140/73 02/06/20 08:00 Pulse Ox 89 L 02/06/20 08:00 Weight - Most Recent: 108.499 kg I&O - Last 24 Hours: Intake & Output 02/05/20 02/06/20 02/06/20 22:59 06:59 14:59 Intake Total 700 750 Balance 700 750 Lab Results Last 24 Hours: Laboratory Results - last 24 hr 02/03/20 02/05/20 02/05/20 Range/Units 17:10 12:41 17:26 WBC (5.0-10.0) 10^3/uL RBC (4.6-6.2) 10^6/uL Hgb (14.0-18.0) g/dL Hct (40.0-54.0) % MCV (80-100) fL MCH (27.0-34.0) pg MCHC (33.0-35.0) g/dL Plt Count (150-450) 10^3/uL Neut % (Auto) (42.2-75.2) % Lymph % (Auto) (20.5-50.1) % [place] % (Auto) (2-8) % Eos % (Auto) (1.0-3.0) % Baso % (Auto) (0.0-1.0) % ESR (0-15) mm/hr D-Dimer, Quantitative (0-400) ng/mL Sodium (136-145) mmol/L Potassium (3.5-5.1) mmol/L Chloride (98-107) mmol/L Carbon Dioxide (21-32) mmol/L Anion Gap (7-13) mEq/L BUN (7-18) mg/dL Creatinine (0.70-1.30) mg/dL Est Cr Clr Drug Dosing mL/min Estimated GFR (MDRD) Glucose (74-99) mg/dL POC Glucose 190 H 300 H (70-105) mg/dl Calcium (8.5-10.1) mg/dL Magnesium (1.8-2.4) mg/dL Total Bilirubin (0.2-1.0) mg/dL Direct Bilirubin (0.0-0.2) mg/dL Indirect Bilirubin AST (15-37) U/L ALT (16-63) U/L Alkaline Phosphatase (46-116) U/L C-Reactive Protein (0.0-0.9) mg/dL Total Protein (6.4-8.2) g/dL Albumin (3.4-5.0) g/dL Globulin Albumin/Globulin Ratio COVID-19 PCR Detected H (NOT DETECT) 02/05/20 02/06/20 02/06/20 Range/Units 20:29 06:29 06:29 WBC 11.1 H (5.0-10.0) 10^3/uL RBC 4.81 (4.6-6.2) 10^6/uL Hgb 14.2 (14.0-18.0) g/dL Hct 39.6 L (40.0-54.0) % MCV 82.3 (80-100) fL MCH 29.5 (27.0-34.0) pg MCHC 35.9 H (33.0-35.0) g/dL Plt Count 360 (150-450) 10^3/uL Neut % (Auto) 81.7 H (42.2-75.2) % Lymph % (Auto) 10.9 L (20.5-50.1) % [place] % (Auto) 7.2 (2-8) % Eos % (Auto) 0.0 L (1.0-3.0) % Baso % (Auto) 0.2 (0.0-1.0) % ESR 67 H (0-15) mm/hr D-Dimer, Quantitative 661 H (0-400) ng/mL Sodium (136-145) mmol/L Potassium (3.5-5.1) mmol/L Chloride (98-107) mmol/L Carbon Dioxide (21-32) mmol/L Anion Gap (7-13) mEq/L BUN (7-18) mg/dL Creatinine (0.70-1.30) mg/dL Est Cr Clr Drug Dosing mL/min Estimated GFR (MDRD) Glucose (74-99) mg/dL POC Glucose 366 H (70-105) mg/dl Calcium (8.5-10.1) mg/dL Magnesium (1.8-2.4) mg/dL Total Bilirubin (0.2-1.0) mg/dL Direct Bilirubin (0.0-0.2) mg/dL Indirect Bilirubin AST (15-37) U/L ALT (16-63) U/L Alkaline Phosphatase (46-116) U/L C-Reactive Protein (0.0-0.9) mg/dL Total Protein (6.4-8.2) g/dL Albumin (3.4-5.0) g/dL Globulin Albumin/Globulin Ratio COVID-19 PCR (NOT DETECT) 02/06/20 02/06/20 Range/Units 06:29 06:29 WBC (5.0-10.0) 10^3/uL RBC (4.6-6.2) 10^6/uL Hgb (14.0-18.0) g/dL Hct (40.0-54.0) % MCV (80-100) fL MCH (27.0-34.0) pg MCHC (33.0-35.0) g/dL Plt Count (150-450) 10^3/uL Neut % (Auto) (42.2-75.2) % Lymph % (Auto) (20.5-50.1) % [place] % (Auto) (2-8) % Eos % (Auto) (1.0-3.0) % Baso % (Auto) (0.0-1.0) % ESR (0-15) mm/hr D-Dimer, Quantitative (0-400) ng/mL Sodium 138 (136-145) mmol/L Potassium 3.6 (3.5-5.1) mmol/L Chloride 101 (98-107) mmol/L Carbon Dioxide 31 (21-32) mmol/L Anion Gap 9.6 (7-13) mEq/L BUN 12 (7-18) mg/dL Creatinine 0.92 (0.70-1.30) mg/dL Est Cr Clr Drug Dosing 91.79 mL/min Estimated GFR (MDRD) > 60 Glucose 162 H (74-99) mg/dL POC Glucose (70-105) mg/dl Calcium 8.1 L (8.5-10.1) mg/dL Magnesium 1.8 (1.8-2.4) mg/dL Total Bilirubin 0.8 (0.2-1.0) mg/dL Direct Bilirubin 0.3 H (0.0-0.2) mg/dL Indirect Bilirubin 0.5 AST 27 (15-37) U/L ALT 38 (16-63) U/L Alkaline Phosphatase 101 (46-116) U/L C-Reactive Protein 7.4 H (0.0-0.9) mg/dL Total Protein 7.2 (6.4-8.2) g/dL Albumin 2.5 L (3.4-5.0) g/dL Globulin 4.7 Albumin/Globulin Ratio 0.53 COVID-19 PCR (NOT DETECT) [place] Results Last 24 Hours: Microbiology 02/02/20 11:01 Aerobic Blood Culture - Preliminary Blood - Venous - Lab Draw NO GROWTH AFTER 4 DAYS Anaerobic Blood Culture - Preliminary NO GROWTH AFTER 4 DAYS 02/02/20 10:56 Aerobic Blood Culture - Preliminary Blood - Venous NO GROWTH AFTER 4 DAYS Anaerobic Blood Culture - Preliminary NO GROWTH AFTER 4 DAYS 02/03/20 10:33 Gram Stain - Final Sputum - Expectorated Sputum Culture - Final Med Orders - Current: Current Medications Acetaminophen (Tylenol) 650 mg PO Q4H PRN PRN Reason: Pain (Mild 1-3)/fever Dexamethasone (Dexamethasone) 6 mg PO DAILY [facility] Last Admin: 02/06/20 08:37 Dose: 6 mg Documented by: Docusate Sodium (Colace) 100 mg PO BID PRN PRN Reason: Constipation Enoxaparin Sodium (Lovenox) 40 mg SUBCUT Q12HR [facility] Last Admin: 02/06/20 08:37 Dose: 40 mg Documented by: REMDESIVIR (EUA) 100 mg/ (Sodium Chloride) 230 mls @ 460 mls/hr IV Q24H [facility] Stop: 02/06/20 18:29 Last Admin: 02/05/20 17:29 Dose: 460 mls/hr Documented by: Insulin Glargine (Lantus) 20 unit SUBCUT BEDTIME [facility] Last Admin: 02/05/20 20:38 Dose: 20 units Documented by: Insulin Human Lispro (Humalog) 0 unit SUBCUT WITHMEALSANDBED [facility]; Protocol Last Admin: 02/06/20 12:14 Dose: 4 units Documented by: Ondansetron HCl (Zofran Odt) 4 mg PO Q4H PRN PRN Reason: nausea, able to take PO Sodium Chloride (Saline Flush) 10 ml FLUSH ASDIRECTED PRN PRN Reason: Keep Vein Open Last Admin: 02/02/20 10:38 Dose: 10 ml Documented by: Sodium Chloride (Saline Flush) 30 ml IV DAILY@1900 [facility] Stop: 02/06/20 19:01 Last Admin: 02/05/20 18:16 Dose: 30 ml Documented by: Discontinued Medications Azithromycin (Zithromax) 500 mg PO ONETIME ONE Stop: 02/02/20 11:40 Last Admin: 02/02/20 11:54 Dose: 500 mg Documented by: Dexamethasone (Dexamethasone) 8 mg IVPUSH ONETIME ONE Stop: 02/02/20 11:40 Last Admin: 02/02/20 11:55 Dose: 8 mg Documented by: Dexamethasone (Dexamethasone) 6 mg PO DAILY [facility] Enoxaparin Sodium (Lovenox) 40 mg SUBCUT DAILY [facility] Ceftriaxone Sodium 2 gm/ (Sodium Chloride) 100 mls @ 200 mls/hr IV ONETIME ONE Stop: 02/02/20 12:07 Last Admin: 02/02/20 11:54 Dose: 200 mls/hr Documented by: Potassium Chloride/Sodium Chloride (Normal Saline With 40 Meq Kcl) 1,000 mls @ 250 mls/hr IV ASDIRECTED [facility] Last Admin: 02/02/20 12:11 Dose: 250 mls/hr Documented by: Potassium Chloride/Sodium Chloride (Normal Saline With 20 Meq Kcl) 1,000 mls @ 100 mls/hr IV ASDIRECTED [facility] Ceftriaxone Sodium 1 gm/ (Sodium Chloride) 100 mls @ 200 mls/hr IV Q24H [facility] Last Admin: 02/02/20 16:05 Dose: 200 mls/hr Documented by: Azithromycin 500 mg/ Sodium (Chloride) 250 mls @ 250 mls/hr IV Q24H [facility] Last Admin: 02/02/20 16:54 Dose: 250 mls/hr Documented by: REMDESIVIR (EUA) 200 mg/ (Sodium Chloride) 250 mls @ 500 mls/hr IV ONETIME ONE Stop: 02/02/20 18:29 Last Admin: 02/02/20 20:06 Dose: 500 mls/hr Documented by: Sterile Water (Sterile Water For Injection) Confirm Administered Dose 40 mls @ as directed .ROUTE .STK-MED ONE Stop: 02/02/20 19:24 Last Admin: 02/03/20 04:17 Dose: Not Given Documented by: Sterile Water (Sterile Water For Injection) Confirm Administered Dose 20 mls @ as directed .ROUTE .STK-MED ONE Stop: 02/05/20 17:13 Last Admin: 02/05/20 17:28 Dose: Not Given Documented by: Insulin Glargine (Lantus) 10 unit SUBCUT BEDTIME [facility] Iopamidol (Isovue-370 (76%)) 100 ml IVPUSH ONETIME ONE Stop: 02/02/20 12:20 Last Admin: 02/02/20 12:51 Dose: 79 ml Documented by: Ondansetron HCl (Zofran) 4 mg IV ONETIME ONE Stop: 02/02/20 11:53 Last Admin: 02/02/20 11:58 Dose: 4 mg Documented by: Potassium Chloride (Klor-Con 10) 40 meq PO ONETIME ONE Stop: 02/02/20 11:53 Last Admin: 02/02/20 12:11 Dose: 40 meq Documented by: Potassium Chloride (Klor-Con 10) 40 meq PO ONETIME ONE Stop: 02/02/20 19:01 Last Admin: 02/02/20 18:35 Dose: Not Given Documented by: Potassium Chloride (Klor-Con 10) 40 meq PO ONETIME ONE Stop: 02/03/20 11:01 Last Admin: 02/03/20 12:14 Dose: 40 meq Documented by: Potassium Chloride (Klor-Con 10) 40 meq PO ONETIME ONE Stop: 02/04/20 12:01 Last Admin: 02/04/20 12:32 Dose: 40 meq Documented by: Potassium Chloride (Klor-Con 10) 40 meq PO ONETIME ONE Stop: 02/05/20 12:56 Last Admin: 02/05/20 14:50 Dose: 40 meq Documented by: Sodium Chloride (Saline Flush) 30 ml IV DAILY@1830 [facility] Stop: 02/06/20 18:31 Last Admin: 02/03/20 04:19 Dose: 30 ml Documented by: - Exam Quality Assessment: Supplemental Oxygen, DVT Prophylaxis. No: Urine Catheter General: Alert, Oriented, Cooperative, No Acute Distress HEENT: Pupils Equal, EOMI, Mucous Membr. Moist/[place] Neck: Supple, No JVD, No Thyromegaly Lungs: Clear to Auscultation, Normal Respiratory Effort, Decreased Breath Sounds (B/L Lung base). No: Crackles, Wheezing Cardiovascular: Regular Rate, Regular Rhythm, Murmurs GI/Abdominal Exam: Normal Bowel Sounds, Soft, Non-Tender. No: Guarding, Rebound (Male) Exam: Deferred Back Exam: Normal Inspection Extremities: Normal Inspection, No Pedal Edema Skin: Warm, Dry, Intact Neurological: No New Focal Deficit Psy/Mental Status: Alert, Normal Affect, Normal Mood Sepsis Event Note - Evaluation Sepsis Screening Result: No Definite Risk - Focused Exam Vital Signs: Vital Signs Temp Pulse Resp BP Pulse Ox 02/06/20 08:00 37.2 C 81 20 140/73 89 L 02/06/20 04:00 88 L - Problem List Review Problem List Initiated/Reviewed/Updated: Yes - Plan Plan:: 56-year-old on no medications, no allergy. No previous diagnosis of chronic medical disease ( like hypertension, Diabetes or Lung disease). He presented with shortness of breath. Clinical history, exposure history and CT of the chest compatible with COVID 19 related viral pneumonia Onset of infection is likely more than 10-14 days prior to presentation. Rapid Covid -19 test nevertheless was negative. Repeat Covid test from 02 February was sent out and it is positive Pro-calcitonin was low, unlikely bacterial pneumonia causing similar symptoms. - On no antibiotics Likely diagnosis is Covid 19 pneumonia, consulted ID and Dr. Prasad ( ID) is also remotely following the pt He is Started treatment with dexamethasone, remdesivir. The patient would technically also qualify for convalescent plasma study as organized by [facility]. Nevertheless I believe the patient's active infection has past, we are dealing with residual lung damage. Discussed potential plasma transfusion with the patient, discussed risks and benefits. The decision was to hold off on plasma unless deteriorating and active infection signs are present and not improving. Impression and Plan: 1. Acute hypoxemic respiratory failure secondary to COVID-19 pneumonia - He is needing Supplemental oxygen and now he is at 6 L and will try to wean off as Tolerated - Follow closely for deterioration, he is stable and will continue current treatment plan - Most likely he will need home oxygen. and We'll not be able to arrange this over the weekend. will have to stay over the weekend and can be D/C on Friday, but now since he is still positive for COVID-19, Decision needs to be made about his Quarantine status 2. Hypokalemia: His potassium is acceptable - Has received Potassium Chloride 40 meq PO X 1 on 02/05/20 - We'll continue to replace and recheck potassium regularly;y 3. Elevated blood sugars : This is likely due to steroids but his hemoglobin A1c is elevated to above 8 the patient likely has previously undiagnosed diabetes -Will Continue with supplemental insulin - Will Continue with Lantus in the evenings - Follow blood sugars - Hypoglycemia treatment as needed 4. DVT prophylaxis We'll provide aggressive DVT prophylaxis in view of probable Covid 19 infection Use Lovenox 40 mg twice a day
[2020-02-06] MEDS: Sodium Chloride 0.9% 10 ML Syringe IV SCH (20:49)
[2020-02-06] MEDS: Insulin Glarg,Human.Rec.Analog 100 Unit/ML SUBCUT SCH (20:49)
[2020-02-07 07:00] LABS: ANION GAP 9.7 mEq/L (7-13); CHLORIDE,CL 100 mmol/L (98-107); SODIUM,NA 137 mmol/L (136-145)
[2020-02-07] MEDS: Insulin Lispro 100 Units/ML 3 ML Vial SUBCUT SCH ×2 (08:13→11:59)
[2020-02-07] MEDS: Enoxaparin 40 MG/0.4 ML Syringe SUBCUT SCH (08:15)
[2020-02-07] MEDS: Dexamethasone 4 MG Tab PO SCH (08:15)
--- NOTE | 2020-02-07 10:39 | PN ---
DATE: 02/07/2020 SUBJECTIVE: The patient is a 55-year-old male, admitted with COVID-19 pneumonia. He was given Remdesivir and was also placed on dexamethasone. The patient is doing fairly well. He still has the desaturation without oxygen, but he is saturating well at 4 to 6 L of oxygen. The patient denies any chest pain, shortness of breath, fever, chills, nor any other complaints. LAB WORKUP THIS MORNING: CBC: WBC 8.8, hemoglobin is 13.7, hematocrit is 38.5, platelets 351. D-dimer is 796. Glucose is 198. C-reactive protein is 8. Albumin is 2.2. OBJECTIVE: Vital Signs: Blood pressure is 156/89, pulse of 82, respirations of 18, saturation is 91% on 4 L per nasal cannula. Heart: Regular rate and rhythm. Normal S1 and S2. No gallops. No rubs. Lungs: Equal bilaterally. No significant crackles. No wheezing. Abdomen: Soft, nontender. Bowel sounds positive. Extremities: Negative for any pedal edema. No calf tenderness. PLAN: The patient is going to be discharged home today on oxygen and the patient is to follow up with primary care provider in 1 week. The patient will also be doing home isolation. [facility] /[id number]
--- NOTE | 2020-02-07 11:34 | DISCH ---
FINAL DIAGNOSES: 1. COVID-19 pneumonia. 2. Hypoxemia secondary to above. BRIEF HISTORY OF PRESENT ILLNESS: Please see H and P. PERTINENT LABS, X-RAY AND OTHER TESTS ON ADMISSION: See H and P. CAT scan of the chest showed small airways, small-vessel disease, and bilateral pulmonary ground-glass opacities, but no pulmonary embolism identified. HOSPITAL COURSE: The patient admitted to an isolation room for COVID-19 patients. He was given Remdesivir IV and was also placed on dexamethasone. Because of his hypoxemia, he was given oxygen 4 to 6 L per nasal cannula, which kept his saturation above 90%. Blood sugar was running elevated secondary to the dexamethasone, and he was placed on sliding scale for this. Hospital course was uncomplicated, and the patient was subsequently discharged to home, and he is going to do self-quarantine and he will be continued on oxygen. We will also place him on Pulmicort inhaler as well as albuterol inhaler upon discharge. Blood sugar will be checked on his followup, but his dexamethasone will be discontinued upon discharge. Follow up with primary care provider in about a week with CBC and comp panel and A1c. CONDITION ON DISCHARGE: Improved. [facility] /[id number]
--- NOTE | 2020-02-07 12:52 | DISCH ---
ADDENDUM: The patient's oxygen saturation on room air is below 88%. [facility] /[id number]
== END 2020-02-07 14:00 | disposition home or self-care (01) | DRG 177 ==
LOC: DL.ED 10:32 → DL.MS 13:26 → UNDOADMIN 13:26 → DL.ED 13:30
PROVIDERS: ADMIT Family Medicine; ATTEND Internal Medicine
PROC: 8E0ZXY6 Isolation (ICD-10-PCS; principal; 2020-02-02)
PROC: XW033E5 Introduction of Remdesivir Anti-infective into Peripheral Vein, Percutaneous Approach, New Technology Group 5 (ICD-10-PCS; 2020-02-03)
PROC: XW033E5 Introduction of Remdesivir Anti-infective into Peripheral Vein, Percutaneous Approach, New Technology Group 5 (ICD-10-PCS; 2020-02-04)
PROC: XW033E5 Introduction of Remdesivir Anti-infective into Peripheral Vein, Percutaneous Approach, New Technology Group 5 (ICD-10-PCS; 2020-02-05)
PROC: XW033E5 Introduction of Remdesivir Anti-infective into Peripheral Vein, Percutaneous Approach, New Technology Group 5 (ICD-10-PCS; 2020-02-06)
DX: J12.9 Viral pneumonia, unspecified (principal); Z20.828 Contact with and (suspected) exposure to other viral communicable diseases; E11.9 Type 2 diabetes mellitus without complications; U07.1 COVID-19; J12.89 Other viral pneumonia; J96.01 Acute respiratory failure with hypoxia; E87.6 Hypokalemia; T38.0X5A Adverse effect of glucocorticoids and synthetic analogues, initial encounter; E11.65 Type 2 diabetes mellitus with hyperglycemia; Z87.891 Personal history of nicotine dependence
CPT/HCPCS: 36415; 71260; 80053; 83605; 84145; 84484; 85025; 85379; 85610; 85730; 86140; 87040 ×2; 87635; 96365; 96367; 96375; 99284; 99285; A9270 ×2; J0696; J1100; J2405; J3480; J7050; Q9967; 80048; 80076; 82728; 82962; 83036; 83615; 83735; 85651; 87070; 87205; 87493; 94762; J0456; J1650; J1815-GY; J8540; U0002

== ENCOUNTER 2022-10-14 18:11 | Emergency (ER) | payer BC, MEDICAID, OTHER ==
[2022-10-14] MEDS ORDERED: Sodium Chloride 0.9% 10 ML Syringe FLUSH PRN (18:45)
[2022-10-14 19:51] LABS: ANION GAP 11.9 mEq/L (7-13); CHLORIDE,CL 98 mmol/L (98-107); SODIUM,NA 135 mmol/L (136-145)
[2022-10-14 19:52] LABS: ESTIMATED GFR 68 mL/min (>=60)
[2022-10-14] MEDS ORDERED: Iopamidol 612 MG/ML 100 ML Bottle IVPUSH ONE (20:04)
[2022-10-14] MEDS ORDERED: Bacitracin Oint 1 GM U/D Packet TOP ONE (21:19)
== END 2022-10-14 22:00 | disposition home or self-care (01) ==
LOC: DL.ED 18:11
DX: E11.621 Type 2 diabetes mellitus with foot ulcer (principal); L97.419 Non-pressure chronic ulcer of right heel and midfoot with unspecified severity; Z86.16 Personal history of COVID-19
CPT/HCPCS: 36415; 73701; 80053; 83605; 84145; 85025; 85379; 86140; 87040; 87070; 93971; 96365; 96366; 99284; A9270; J3370; J7040; Q9967; J3490

== ENCOUNTER 2023-04-08 10:54 | Emergency (ER) | payer MEDICAID ==
[~2023-04-08 10:54] MED LIST: Sodium Chloride 0.9% 10 ML Syringe FLUSH PRN
[2023-04-08] MEDS ORDERED: Iopamidol 755 Mg/ML 100 ML Bottle IVPUSH ONE (11:00)
[2023-04-08] MEDS ORDERED: Metoprolol Tartrate 5 MG/5 ML SDV IVPUSH ONE (11:48)
[2023-04-08 11:52] LABS: BASOPHILS PERCENT AUTO 0.3 % (0.0-1.0); EOSINOPHILS PERCENT AUTO 0.8 % (1.0-3.0); HEMATOCRIT 39.8 % (40.0-54.0); HEMOGLOBIN 13.4 g/dL (14.0-18.0); MEAN CORPUSCULAR HEMOGLOBIN 27.9 pg (27.0-34.0); MEAN CORPUSCULAR HGB CONC 33.7 g/dL (33.0-35.0); MEAN CORPUSCULAR VOLUME 82.7 fL (80-100); MONOCYTES PERCENT AUTO 3.9 % (2-8); PLATELET COUNT,PLT 270 10^3/uL (150-450); RED BLOOD CELL COUNT 4.81 10^6/uL (4.6-6.2)
[2023-04-08 12:13] LABS: ALBUMIN 2.5 g/dL (3.4-5.0); ANION GAP 11.9 mEq/L (7-13); BILIRUBIN TOTAL 0.5 mg/dL (0.2-1.0); BUN/CREATININE RATIO 14.4 (No establ ref range); CALCIUM 9.3 mg/dL (8.5-10.1); CREATININE 1.25 mg/dL (0.70-1.30); EST CRCL DRUG DOSING (CG) 65.2 mL/min; POTASSIUM,K 3.9 mmol/L (3.5-5.1); PROTEIN TOTAL,TP 6.9 g/dL (6.4-8.2)
[2023-04-08 12:17] LABS: A/G RATIO 0.57
[2023-04-08 12:41] LABS: INR 0.9 (0.9-1.2); PROTHROMBIN TIME 9.4 SEC (9.0-12.0)
== END 2023-04-08 14:23 | disposition home or self-care (01) ==
LOC: DL.ED 10:54
DX: I63.9 Cerebral infarction, unspecified (principal); I10 Essential (primary) hypertension; E11.9 Type 2 diabetes mellitus without complications; Z86.16 Personal history of COVID-19
CPT/HCPCS: 36415; 70450; 70496; 70498; 80053; 84484; 85025; 85610; 93005; 96374; 99285; J3490; Q9967

== ENCOUNTER 2023-11-04 08:59 | Emergency (ER) | payer MEDICAID ==
[2023-11-04] MEDS: Polyethylene Glycol 3350 Powder 17 GM Packet PO ONE ×2 (11:30→12:06)
== END 2023-11-04 14:09 | disposition home or self-care (01) ==
LOC: DL.ED 08:59
DX: R10.32 Left lower quadrant pain (principal); E11.9 Type 2 diabetes mellitus without complications; Z86.16 Personal history of COVID-19
CPT/HCPCS: 74019; 99283; 99284; A9270-GY

== ENCOUNTER 2024-09-20 16:26 | Emergency (ER) | payer MEDICAID ==
[2024-09-20] MEDS: cefTRIAXone 1 GM, Lidocaine 1% 2.1 ML IM ONE (16:50)
== END 2024-09-20 17:10 | disposition home or self-care (01) ==
LOC: DL.ED 16:26
DX: J18.9 Pneumonia, unspecified organism (principal); I10 Essential (primary) hypertension; E11.9 Type 2 diabetes mellitus without complications; Z86.16 Personal history of COVID-19
CPT/HCPCS: 96372; 99283; 99284; J0696; J2003

== ENCOUNTER 2024-10-25 15:17 | Emergency (ER) | payer MEDICAID ==
[2024-10-25] MEDS ORDERED: Sodium Chloride 0.9% 10 ML Syringe FLUSH PRN (15:38)
[2024-10-25 16:00] LABS: BASOPHILS PERCENT AUTO 0.5 % (0.0-1.0); EOSINOPHILS PERCENT AUTO 4.9 % (1.0-3.0); HEMATOCRIT 31.1 % (40.0-54.0); HEMOGLOBIN 9.6 g/dL (14.0-18.0); LYMPHOCYTES PERCENT AUTO 17.4 % (20.5-50.1); MEAN CORPUSCULAR HEMOGLOBIN 29.2 pg (27.0-34.0); MEAN CORPUSCULAR HGB CONC 30.9 g/dL (33.0-35.0); MEAN CORPUSCULAR VOLUME 94.5 fL (80-100); MONOCYTES PERCENT AUTO 5.3 % (2-8); NEUTROPHILS PERCENT AUTO 71.9 % (42.2-75.2); PLATELET COUNT,PLT 414 10^3/uL (150-450); RED BLOOD CELL COUNT 3.29 10^6/uL (4.6-6.2); WHITE BLOOD CELL COUNT,WBC 8.3 10^3/uL (5.0-10.0)
[2024-10-25 16:19] LABS: B-TYPE NATRIURETIC PEPTIDE,BNP 1160 pg/ml (0-100)
[2024-10-25 16:25] LABS: ALANINE AMINOTRANSFERASE,ALT 26 U/L (16-63); ALBUMIN 1.8 g/dL (3.4-5.0); ALKALINE PHOSPHATASE 147 U/L (46-116); ASPARTATE AMNIOTRANSFERASE,AST 36 U/L (15-37); BLOOD UREA NITROGEN,BUN 36 mg/dL (7-18); C-REACTIVE PROTEIN 1.25 ng/dL (<=0.50); CARBON DIOXIDE,CO2 21 mmol/L (21-32); CHLORIDE,CL 115 mmol/L (98-107); CREATININE 4.49 mg/dL (0.70-1.30); EST CRCL DRUG DOSING (CG) 16.77 mL/min; GLUCOSE RANDOM 79 mg/dL (70-99); LIPASE 32 U/L (16-77); PROTEIN TOTAL,TP 6.7 g/dL (6.4-8.2); SODIUM,NA 146 mmol/L (136-145)
[2024-10-25 16:26] LABS: A/G RATIO 0.37; ESTIMATED GFR 14 mL/min (>=60); INR 0.9 (0.9-1.2); PROTHROMBIN TIME 9.3 SEC (9.0-12.0); PTT,PARTIAL THROMBOPLSTIN TIME 27.2 SEC (22.0-34.0)
[2024-10-25 16:27] LABS: BILIRUBIN TOTAL < 0.1 mg/dL (0.2-1.0)
[2024-10-25 16:39] LABS: LACTIC ACID 0.5 mmol/L (0.4-2.0)
== END 2024-10-25 18:05 ==
LOC: DL.ED 15:17
DX: I11.0 Hypertensive heart disease with heart failure (principal); I50.9 Heart failure, unspecified; N17.9 Acute kidney failure, unspecified; R60.1 Generalized edema; E11.9 Type 2 diabetes mellitus without complications; F17.210 Nicotine dependence, cigarettes, uncomplicated; R79.89 Other specified abnormal findings of blood chemistry; Z86.16 Personal history of COVID-19
CPT/HCPCS: 36415; 71045; 80053; 83605; 83690; 83880; 84484; 85025; 85610; 85730; 86140; 87040; 93005; 93010; 99285